=== PATIENT | male | born 1980 | race Caucasian/White ===

== ENCOUNTER 2017-04-03 14:52 | Emergency (ER) | payer OTHER, SELFPAY ==
[~2017-04-03] VITALS: Ht 185.4 cm; Wt 146.8 kg
[~2017-04-03 14:52] MED LIST: /CIPR75TA; FLAG500T
[2017-04-03 14:53] VITALS: BP 157/84
[2017-04-03] MEDS ORDERED: ROBA500T PO (16:16)
[2017-04-03] MEDS ORDERED: IBUP-1022 PO (16:16)
== END 2017-04-03 16:22 | disposition home or self-care (01) ==
LOC: M ED 14:52
DX: M54.12 Radiculopathy, cervical region (principal)

== ENCOUNTER 2019-02-08 16:28 | Emergency (ER) | payer OTHER, SELFPAY ==
[~2019-02-08] VITALS: Ht 185.4 cm; Wt 156.2 kg
[~2019-02-08 16:28] MED LIST changes: +IBUP-1022 PO; +ROBA500T PO
[2019-02-08] MEDS ORDERED: IPRATROPIUM 0.5MG/ALBUTEROL 2.5MG INH SOL UD 3ML (DUONEB)(J7620) NEB ONE (16:45)
[2019-02-08] MEDS ORDERED: ALBUTEROL SULFATE 2.5 MG/0.5 ML INH NEB SOLN INH ONE (16:45)
[2019-02-08] MEDS ORDERED: dexameTHASONE 20 MG/5 ML VIAL (J1100) IV ONE (17:00)
[2019-02-08 17:16] LABS: BASO # 0.1 10^3/uL (0.0-0.2); BASO % 0.5 % (0.0-1.0); EOS # 0.1 10^3/uL (0.0-0.50); HEMATOCRIT 48.1 % (42.0-52.0); HEMOGLOBIN 16.5 g/dl (13.5-17.5); LYMPH # 2.8 10^3/uL (1.5-4.5); LYMPH % 26.2 % (24.0-44.0); MEAN CORPUSCULAR HEMOGLOBIN 31.4 pg (27.0-33.0); MEAN CORPUSCULAR HGB CONC 34.3 g/dl (32.0-36.5); MEAN CORPUSCULAR VOLUME 91.6 fl (80.0-96.0); MONO # 0.9 10^3/uL (0.0-0.8); MONO % 8.7 % (0.0-5.0); NEUTROPHILS # 6.7 10^3/uL (1.8-7.7); NEUTROPHILS % 63.2 % (36.0-66.0); PLATELET COUNT, AUTOMATED 215 10^3/uL (150-450); RED BLOOD COUNT 5.25 10^6/uL (4.30-6.10); WHITE BLOOD COUNT 10.6 10^3/uL (4.0-10.0)
[2019-02-08 17:34] LABS: BLOOD UREA NITROGEN 9 MG/DL (7-18); CALCIUM LEVEL 9.4 MG/DL (8.5-10.1); CARBON DIOXIDE LEVEL 30 MEQ/L (21-32); CHLORIDE LEVEL 106 MEQ/L (98-107); CK-MB VALUE MASS 1.7 NG/ML (<3.6); CPK CREATINE PHOSPHOKINASE 134 U/L (39-308); CREATININE FOR GFR 1.18 MG/DL (0.70-1.30); GLOMERULAR FILTRATION RATE > 60.0 (>60); GLUCOSE, FASTING 91 MG/DL (70-100); MB/CK RELATIVE INDEX 1.27 (< OR =4); NT-PRO BNP 27 PG/ML (<125); POTASSIUM SERUM 4.2 MEQ/L (3.5-5.1); SODIUM LEVEL 139 MEQ/L (136-145); TROPONIN I < 0.02 NG/ML (< 0.10)
[2019-02-08] MEDS ORDERED: ISOVUE-370 76% 100ML VIAL (Q9967) As Ordered ONE (17:46)
--- NOTE | 2019-02-08 18:36 | REPVR ---
EXAM: CT Angiography Chest With Contrast EXAM DATE/TIME: 02/08/2019 5:53 PM CLINICAL HISTORY: 38 years old, male; Shortness of breath; Right-sided chest pain; Additional info: Chest pain (right), SOB TECHNIQUE: Imaging protocol: Axial computed tomographic angiography images of the chest with intravenous contrast using CT angiography protocol. Coronal and sagittal reformatted images were created and reviewed. 3D rendering: MIP reconstructed images were created and reviewed. Radiation optimization: All CT scans at this facility use at least one of these dose optimization techniques: automated exposure control; mA and/or kV adjustment per patient size (includes targeted exams where dose is matched to clinical indication); or iterative reconstruction. Contrast material: ISOVUE 370;Contrast volume: 75 ml;Contrast route: IV; COMPARISON: CR PORTABLE CHEST X-RAY 02/08/2019 4:50 PM FINDINGS: Pulmonary arteries: There are no pulmonary emboli. Aorta: There is no aortic dissection or aneurysm. Lungs: Pleural-based parenchymal opacity in the anterior segment of the right lower lobe measures 1.8 x 2.7 cm. Finding may represent a focus of airspace consolidation however a mass is not excluded. Followup suggested. There is bibasilar compressive atelectasis. Pleural space: Unremarkable. No pneumothorax. No pleural effusion. Heart: Unremarkable. No cardiomegaly. No pericardial effusion. Lymph nodes: Unremarkable. No enlarged lymph nodes. Bones/joints: Unremarkable. No acute fracture. Soft tissues: Unremarkable. Other findings: Suboptimal inspiratory effort. IMPRESSION: 1. Pleural-based parenchymal opacity in the anterior segment of the right lower lobe measures 1.8 x 2.7 cm. Finding may represent a focus of airspace consolidation however a mass is not excluded. Followup suggested after treatment in this patient with no reported history of malignancy. 2. There is no aortic dissection or aneurysm. 3. There are no pulmonary emboli. Electronically signed by: Macario Vasquez On 02/08/2019 18:36:13 PM
[2019-02-08] MEDS ORDERED: DOXYCYCLINE HYCLATE 100 MG TAB PO ONE (19:15)
[2019-02-08 19:45] VITALS: BP 134/76
[2019-02-08] MEDS ORDERED: VENTAER INH (19:48)
[2019-02-08] MEDS ORDERED: PRED20TA PO (19:48)
[2019-02-08] MEDS ORDERED: DOXY-350 PO (19:48)
--- NOTE | 2019-02-09 08:08 | ECGEPIP ---
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
--- NOTE | 2019-02-09 09:59 | REP ---
AP PORTABLE CHEST: 02/08/2019. Comparison: 08/29/2002. Clinical history: Chest pain. Findings: The lung quigley are well inflated. I do not see effusion, lateral pleural thickening, apical scarring or pneumothorax. No pneumomediastinum. No dense consolidation. Heart not enlarged. Aorta and airway intact. No widening of the mediastinum. Hilar contours normal. Bones grossly intact. Impression: 1. No acute cardiopulmonary change. Electronically Signed by Alden Boyd MD 02/09/2019 10:13 A
[2019-02-15] MEDS ORDERED: DOXY100T16 PO (17:50)
== END 2019-02-08 20:06 | disposition home or self-care (01) ==
LOC: M ED 16:28
DX: J18.9 Pneumonia, unspecified organism (principal); J45.909 Unspecified asthma, uncomplicated; F17.210 Nicotine dependence, cigarettes, uncomplicated
CPT/HCPCS: 71045; 71275; 80048; 82550; 82553; 83880; 85025; 85379; 93005; 93041; 94640; 94760; 96374; 99285; J1100; Q9967

== ENCOUNTER 2019-02-15 14:26 | Inpatient (IN) | payer OTHER ==
[~2019-02-15] VITALS: Ht 185.4 cm; Wt 163.4 kg
[~2019-02-15 14:26] MED LIST changes: +DOXY-350 PO; +PRED20TA PO; +VENTAER INH
[2019-02-15] MEDS ORDERED: IPRATROPIUM 0.5MG/ALBUTEROL 2.5MG INH SOL UD 3ML (DUONEB)(J7620) NEB ONE (15:00)
[2019-02-15] MEDS ORDERED: ALBUTEROL SULFATE 2.5 MG/0.5 ML INH NEB SOLN INH ONE (15:00)
[2019-02-15 15:11] LABS: BASO # 0.1 10^3/uL (0.0-0.2); BASO % 0.4 % (0.0-1.0); EOS # 0.6 10^3/uL (0.0-0.50); EOS % 3.6 % (0.0-3.0); HEMOGLOBIN 15.7 g/dl (13.5-17.5); LYMPH # 1.9 10^3/uL (1.5-4.5); LYMPH % 12.1 % (24.0-44.0); MEAN CORPUSCULAR HEMOGLOBIN 30.5 pg (27.0-33.0); MEAN CORPUSCULAR HGB CONC 33.4 g/dl (32.0-36.5); MEAN CORPUSCULAR VOLUME 91.3 fl (80.0-96.0); MONO # 1.5 10^3/uL (0.0-0.8); MONO % 9.7 % (0.0-5.0); NEUTROPHILS # 11.6 10^3/uL (1.8-7.7); NEUTROPHILS % 73.6 % (36.0-66.0); PLATELET COUNT, AUTOMATED 266 10^3/uL (150-450); RED BLOOD COUNT 5.15 10^6/uL (4.30-6.10); WHITE BLOOD COUNT 15.7 10^3/uL (4.0-10.0)
[2019-02-15 15:12] LABS: VENOUS BASE EXCESS 0.5 (-2.0-2.0); VENOUS HCO3 26.6 MEQ/L (23.0-27.0); VENOUS O2 SATURATION 77.8 % (60.0-80.0); VENOUS PARTIAL PRESSURE CO2 48.1 mmHg (38.0-50.0); VENOUS PARTIAL PRESSURE O2 40.9 mmHg (30.0-50.0); VENOUS PH 7.361 UNITS (7.330-7.430); VENOUS STANDARD HCO3 24.4 MEQ/L; VENOUS TOTAL CO2 28.1 MEQ/L (24.0-28.0)
[2019-02-15] MEDS ORDERED: cefTRIAXone SOD 2 GM in D5W MINI-BAG PLUS 50 ML IV ONE (15:15)
[2019-02-15] MEDS ORDERED: AZITHROMYCIN INJ 500 MG, VIAL MATE ADAPTER 1 EACH in D5W 250 ML IV ONE (15:45)
[2019-02-15 15:54] LABS: ALT/SGPT 16 U/L (12-78); BILIRUBIN,DIRECT 0.2 MG/DL (0.0-0.2); BILIRUBIN,TOTAL 0.6 MG/DL (0.2-1.0); BLOOD UREA NITROGEN 10 MG/DL (7-18); CALCIUM LEVEL 8.2 MG/DL (8.5-10.1); CARBON DIOXIDE LEVEL 27 MEQ/L (21-32); CHLORIDE LEVEL 104 MEQ/L (98-107); CK-MB VALUE MASS 2.3 NG/ML (<3.6); CPK CREATINE PHOSPHOKINASE 175 U/L (39-308); GLOMERULAR FILTRATION RATE > 60.0 (>60); GLUCOSE, FASTING 104 MG/DL (70-100); MB/CK RELATIVE INDEX 1.31 (< OR =4); NT-PRO BNP 35 PG/ML (<125); SODIUM LEVEL 138 MEQ/L (136-145); THYROXINE (T4) 9.2 UG/DL (4.5-12.0); TOTAL PROTEIN 6.6 GM/DL (6.4-8.2); TROPONIN I < 0.02 NG/ML (< 0.10)
--- NOTE | 2019-02-15 16:35 | REP ---
HISTORY: Cough and dyspnea. COMPARISON: 02/08/2019 The technique utilized in obtaining the radiograph has magnified the cardiac silhouette and accentuated the interstitial markings. Since the last examination a patchy opacity has developed in the right lower lobe. The cardiomediastinal silhouette is unchanged. The left lung is clear. The osseous structures are stable. IMPRESSION: New right lower lobe opacity. Atelectasis/pneumonia/effusion. Electronically Signed by Logan Gusman DO 02/15/2019 04:36 P
[2019-02-15] MEDS ORDERED: KETOROLAC 30 MG/ML VIAL (J1885) IV ONE (17:45)
[2019-02-15] MEDS ORDERED: VENTAER INH (17:48)
[2019-02-15] MEDS ORDERED: IBUP1TAB6 PO (17:50)
[2019-02-15] MEDS ORDERED: DOXY100T27 PO (17:50)
[2019-02-15] MEDS ORDERED: VANCOMYCIN HCL IV ONE (18:30)
[2019-02-15] MEDS ORDERED: FLUID PLACE HOLDER IV ONE (18:30)
[2019-02-15] MEDS ORDERED: FLUID PLACE HOLDER IV SCH (18:30)
[2019-02-15] MEDS ORDERED: VANCOMYCIN HCL IV SCH (18:30)
[2019-02-15] MEDS ORDERED: ISOVUE-370 76% 100ML VIAL (Q9967) As Ordered ONE (18:40)
--- NOTE | 2019-02-15 19:06 | HPEPDOC ---
General Date of Admission 02/15/19 Date of Service: Feb 15, 2019 Attending Physician: JACK ADLER DO Chief Complaint The patient is a 38-year-old male admitted with a reason for visit of Sob, Chest Pain. Source: Patient, Family History of Present Illness Patient is 38 years old male with past medical history morbid obesity and smoking abuse presented hospital with dyspnea, right-sided chest pain, cough and sputum production. Patient states that one week ago he developed cough,sputum, subjective fever and shortness of breath. He came to the hospital in the emergency room CT was done and it was negative for consolidation and pulmonary emboli. Patient was prescribed doxycycline, prednisone by mouth. Patient took 6 days of doxycycline and steroid without improvement. 2 days ago patient noticed increased cough and increased sputum production yellowish in color. Also he noticed increased shortness of breath and profound weakness. Today he came to emergency room and he was found to have new right lower lobe opacity on chest x- ray. Also he was found to have leukocytosis of 15. Oxygen saturation on room air showed 93%. Home Medications Scheduled Doxycycline Monohydrate (Doxycycline Monohydrate) 100 Mg Tablet, 100 MG PO BID, (Reported) Scheduled PRN Albuterol Sulfate (Ventolin Hfa) 18 Gm Hfa.aer.ad, 2 PUFF INH Q4-6HP PRN for wheezing, (Reported) Ibuprofen (Ibuprofen) 600 Mg Tablet, 600 MG PO Q6H PRN for PAIN, (Reported) Allergies Coded Allergies: No Known Allergies (Unverified , 02/08/19) Past Medical History Medical History Morbid obesity, active smoker Family History Significant Family History: No pertinent family hx Social History * Smoker: current smoker, greater than 1 pack/day, cigarettes Alcohol: Denies Drugs: marijuana Psychosocial History: No pertinent psych hx A-FIB/CHADSVASC A-FIB History Current/History of A-Fib/PAF?: No Current PO Anticoag Therapy: No Review of Systems Constitutional: Reports: Chills, Fever, Malaise, Weakness, Fatigue Eyes: Denies: Pain, Vision change ENT: Reports: Head Aches Skin: Denies: Rash, Lesions Pulmonary: Reports: Dyspnea, Cough, Pleuritic Chest Pain Cardiovascular: Denies: Chest Pain, Palpitations Gastrointestinal: Denies: Nausea, Vomiting, Abdominal Pain Genitourinary: Denies: Dysuria, Frequency, Incontinence Hematologic: Denies: Bruising, Bleeding Excessively Endocrine: Denies: Polydipsia, Polyphagia, Polyuria Musculoskeletal: Reports: Back Pain; Denies: Neck Pain Neurological: Denies: Weakness, Numbness Psych: Reports: Mood Normal Physical Examination General Exam: Positive: Alert, Cooperative, Mild Distress Eye Exam: Positive: PERRLA ENT Exam: Positive: Atraumatic, Mucous membr. moist/pink Neck Exam: Positive: Supple; Negative: JVD Chest Exam: Positive: Wheezing, Diminished Heart Exam: Positive: Tachycardic, Normal S1, Normal S2 Abdomen Exam: Positive: Normal bowel sounds, Soft Extremity Exam: Negative: Clubbing, Cyanosis Skin Exam: Negative: Nl turgor and temperature, Rash Neuro Exam: Positive: Normal Gait, Cranial Nerves 3-12 NL Psych Exam: Positive: Mental status NL Vital Signs Vital Signs Date Time Temp Pulse Resp B/P (MAP) Pulse Ox O2 Delivery O2 Flow Rate FiO2 02/15/19 17:01 102 169/86 (113) 94 Room Air 02/15/19 15:13 92 02/15/19 14:26 99.8 30 Laboratory Data Labs 24H Laboratory Tests 2 02/15/19 15:01: Immature Granulocyte % (Auto) 0.6, White Blood Count 15.7H, Red Blood Count 5.15, Hemoglobin 15.7, Hematocrit 47.0, Mean Corpuscular Volume 91.3, Mean Corpuscular Hemoglobin 30.5, Mean Corpuscular Hemoglobin Concent 33.4, Red Cell Distribution Width 13.3, Platelet Count 266, Neutrophils (%) (Auto) 73.6H, Lymphocytes (%) (Auto) 12.1L, Monocytes (%) (Auto) 9.7H, Eosinophils (%) (Auto) 3.6H, Basophils (%) (Auto) 0.4, Neutrophils # (Auto) 11.6H, Lymphocytes # (Auto) 1.9, Monocytes # (Auto) 1.5H, Eosinophils # (Auto) 0.6H, Basophils # (Auto) 0.1, Nucleated Red Blood Cells % (auto) 0.0, Blood Gas Bicarbonate Standard 24.4, Venous Blood pH 7.361, Venous Blood Partial Pressure CO2 48.1, Venous Blood Partial Pressure O2 40.9, Venous Blood Total Carbon Dioxide 28.1H, Venous Blood HCO3 26.6, Venous Blood Oxygen Saturation 77.8, Venous Blood Base Excess 0.5, Anion Gap 7L, Glomerular Filtration Rate > 60.0, Lactic Acid Level 1.5, Calcium Level 8.2L, Aspartate Amino Transf (AST/SGOT) 11, Alanine Aminotransferase (ALT/SGPT) 16, Alkaline Phosphatase 75, Total Bilirubin 0.6, Direct Bilirubin 0.2, Total Creatine Kinase 175, Creatine Kinase MB 2.3, Creatine Kinase MB Relative Index 1.31, Troponin I < 0.02, AG-Hhu-A-Type Natriuretic Peptide 35, Total Protein 6.6, Albumin 3.0L, Albumin/Globulin Ratio 0.83L, Thyroid Stimulating Hormone (TSH) 1.790, Thyroxine (T4) 9.2 CBC/BMP Laboratory Tests 02/15/19 15:01 Red Blood Count 5.15, Mean Corpuscular Volume 91.3, Mean Corpuscular Hemoglobin 30.5, Mean Corpuscular Hemoglobin Concent 33.4, Red Cell Distribution Width 13.3, Neutrophils (%) (Auto) 73.6 H, Lymphocytes (%) (Auto) 12.1 L, Monocytes (%) (Auto) 9.7 H, Eosinophils (%) (Auto) 3.6 H, Basophils (%) (Auto) 0.4, Neutrophils # (Auto) 11.6 H, Lymphocytes # (Auto) 1.9, Monocytes # (Auto) 1.5 H, Eosinophils # (Auto) 0.6 H, Basophils # (Auto) 0.1 Microbiology Microbiology 02/15/19 Blood Culture, Received Pending 02/15/19 Blood Culture, Received Pending 02/15/19 Gram Stain, Received Pending 02/15/19 Sputum Culture, Received Pending Assessment/Plan Patient is 38 years old male with past medical history morbid obesity and smokin g abuse presented hospital with dyspnea, right-sided chest pain, cough and sputum production. Patient was diagnosed with right sided pneumonia with new right lower lobe opacity. Problems (1) Sepsis Problem Text: Secondary to right-sided pneumonia Patient has significant dyspnea and leukocytosis Chest x-ray showed significant right lower lobe opacity, which is suspicious for consolidation Chest CT stat Monitor lactic acid Patient fail treatment with doxycycline and steroids Vancomycin IV, Zosyn IV MRSA screen Urine analysis for Legionella and Streptococcus Sputum culture ordered Solu-medrol IV every 8 hours Incentive spirometry Inhalers IV fluid (2) Pneumonia Status: Acute Problem Text: see treatment above Plan / VTE VTE Prophylaxis Ordered?: Yes JACK ADLER DO Feb 15, 2019 19:06
[2019-02-15] MEDS: NS 1,000 ML IV SCH (19:15)
[2019-02-15] MEDS: PIPERACILLIN/TAZOBACTAM SOD 4.5 GM in D5W MINI-BAG PLUS 100 ML IV SCH (19:27)
[2019-02-15] MEDS: methylPREDNISolone INJ 125 MG/2 ML VIAL (J2930) IV SCH (19:27)
--- NOTE | 2019-02-15 20:09 | PHACANCOPD ---
PHARMACY VANCOMYCIN DOSING Pt Demographics Demographics Patient Age:38 , Weight:154.550 , Gender: male Adjusted Body Weight Date: 02/15/19, Adjusted Body Weight: [109.76] Kg Events Past 24 Hours Events Past 24 Hours: NO: Dialysis, Diuretic Therapy, Change in CrCl, Fever, Elevation in WBC, Pending Diagnostics, Pending Procedures, Other Vancomycin Vancomycin indication: CAP Vancomycin Target Ranges: 15-20 mcg/ml Vancomycin Load Y/N: Yes Load Dose Date Time Vancomycin Load Dose: 2G Date:02/15/19 Time: 20:00 Vancomycin Dose Date: 02/15/19. Current Vancomycin Dose: [1G IV Q8H] Intermittent Dosing?: No Labs Labs Item Value Date Time White Blood Count 15.7 10^3/uL H 02/15/19 1501 Creatinine 0.90 MG/DL 02/15/19 1501 Micro Microbiology 02/15/19 Blood Culture, Received Pending 02/15/19 Blood Culture, Received Pending 02/15/19 Gram Stain, Received Pending 02/15/19 Sputum Culture, Received Pending Creatinine Clearance Date:02/15/19. Creatinine Clearance: [128ML/MIN]. Pending Labs VANCOMYCIN TROUGH 02/16/19 20:00 MRSA PCR Assessment and Plan Maintaining Current Dose?: Yes Reason for dose change: No Dose Change Pharmacist Note Pharmacist Note Date: 02/15/19. Pharmacist note: PT is a 38 year old male being treated for CAP goal trough 15-20mcg/ml. The pt has not been treated with Vancomycin here at [facility] in the past. To achieve goal a 2g loading dose will be started 02/15/19 @ 21:00. Maintenance therapy will consist of 1g IV every 8 hours. A trough is scheduled for @ 20:00. We will continue to monitor and adjust the dose as needed. MICKEY RODRÍGUEZ PHARMACY Feb 15, 2019 20:09
--- NOTE | 2019-02-15 20:22 | ECGEPIP ---
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
[2019-02-15] MEDS: HEPARIN SOD (PORCINE) 5000 UNITS/ML VIAL SC SCH (20:27)
[2019-02-15] MEDS: DOCUSATE SODIUM 100 MG CAP PO SCH (20:27)
[2019-02-15] MEDS: IPRATROPIUM 0.5MG/ALBUTEROL 2.5MG INH SOL UD 3ML (DUONEB)(J7620) INH SCH (20:33)
[2019-02-15] MEDS: VANCOMYCIN HCL 1,000 MG, VIAL MATE ADAPTER 1 EACH in D5W 250 ML IV SCH (20:35)
[2019-02-15] MEDS ORDERED: VANCOMYCIN HCL 1,000 MG, VIAL MATE ADAPTER 1 EACH in D5W 250 ML IV ONE ×2 (22:00→23:00)
[2019-02-15 22:24] VITALS: BP 134/69
[2019-02-16] VITALS (8 sets, daily range): BP systolic 132–148; BP diastolic 63–82
[2019-02-16] MEDS: IPRATROPIUM 0.5MG/ALBUTEROL 2.5MG INH SOL UD 3ML (DUONEB)(J7620) INH SCH ×6 (00:10→20:00)
[2019-02-16] MEDS: methylPREDNISolone INJ 125 MG/2 ML VIAL (J2930) IV SCH ×3 (02:19→18:30)
[2019-02-16] MEDS: PIPERACILLIN/TAZOBACTAM SOD 4.5 GM in D5W MINI-BAG PLUS 100 ML IV SCH ×4 (02:19→19:36)
[2019-02-16] MEDS: VANCOMYCIN HCL 1,000 MG, VIAL MATE ADAPTER 1 EACH in D5W 250 ML IV SCH ×3 (04:53→20:54)
[2019-02-16 05:10] LABS: HEMATOCRIT 44.3 % (42.0-52.0); HEMOGLOBIN 14.9 g/dl (13.5-17.5); MEAN CORPUSCULAR HEMOGLOBIN 30.7 pg (27.0-33.0); MEAN CORPUSCULAR HGB CONC 33.6 g/dl (32.0-36.5); MEAN CORPUSCULAR VOLUME 91.2 fl (80.0-96.0); PLATELET COUNT, AUTOMATED 245 10^3/uL (150-450); RED BLOOD COUNT 4.86 10^6/uL (4.30-6.10); WHITE BLOOD COUNT 17.1 10^3/uL (4.0-10.0)
[2019-02-16 05:29] LABS: BLOOD UREA NITROGEN 10 MG/DL (7-18); CALCIUM LEVEL 8.4 MG/DL (8.5-10.1); CARBON DIOXIDE LEVEL 28 MEQ/L (21-32); CHLORIDE LEVEL 105 MEQ/L (98-107); CREATININE FOR GFR 1.02 MG/DL (0.70-1.30); GLOMERULAR FILTRATION RATE > 60.0 (>60); GLUCOSE, FASTING 192 MG/DL (70-100); POTASSIUM SERUM 3.7 MEQ/L (3.5-5.1); SODIUM LEVEL 137 MEQ/L (136-145)
[2019-02-16] MEDS: NS 1,000 ML IV SCH ×4 (07:43→19:36)
[2019-02-16 08:09] LABS: LDH LACTATE DEHYDROGENASE 192 U/L (87-241)
[2019-02-16] MEDS: HEPARIN SOD (PORCINE) 5000 UNITS/ML VIAL SC SCH ×2 (09:00→20:34)
[2019-02-16] MEDS: DOCUSATE SODIUM 100 MG CAP PO SCH ×2 (09:00→20:34)
--- NOTE | 2019-02-16 14:10 | REP ---
AP PORTABLE CHEST: 02/16/2019 at 06:59 AM. Comparison: 02/15/2019, 02/08/2019, CT chest with 16 19. Clinical history: Right pleural effusion. Findings: Lordotic portable semi-erect chest exaggerates heart size. This also makes the effusion look larger although I suspect it is not much changed since last evening. Left lung was clear. Heart size not grossly enlarged. Some subsegmental atelectasis or infiltrate with the effusion on that right side. Impression: 1. Right sided effusion, not much changed from last evening. Left lung clear. No edema. 2. Atelectasis or infiltrate concurrent with that effusion in the left mid lung zone. Electronically Signed by Alden Boyd MD 02/16/2019 09:57 P
--- NOTE | 2019-02-16 15:11 | IPNPDOC ---
Text Note Date of Service The patient was seen on 02/16/19. NOTE Subjective: No any acute events overnight. Patient complains of cough with ye llowish sputum and shortness of breath. However he states that shortness of breath improved since yesterday. Objective Gen morbidly obese male HEENT PERRLA, EOMI, no JVD CV S1 and S2 regular Lungs Diminished lung sounds bilaterally, mild crepitus over the right lower lung Mild wheezes bilaterally Extremitas no swelling no cyanosis Assessment and plan Patient is 38 years old male with past medical history morbid obesity and smoking abuse presented hospital with dyspnea, right-sided chest pain, cough and sputum production. Patient fail treatment with doxycycline and steroids. Patient was found to have sepsis secondary to right lobe pneumonia with right pleural effusion. Sepsis Secondary to right-sided pneumonia Patient has significant dyspnea and leukocytosis. Lactic acid wnl Chest x-ray showed significant right lower lobe opacity, which is suspicious for consolidation Chest CT stat showed right pleural effusion, there is suspicion for empyema Pleuracentesis ordered Vancomycin IV, Zosyn IV day 1 MRSA screen pending Urine analysis for Legionella and Streptococcus pending Sputum culture pending Solu-medrol IV every 8 hours Incentive spirometry Inhalers IV fluid CAP see above VS,Fishbone, I+O VS, Fishbone, I+O Laboratory Tests 02/16/19 04:56 Red Blood Count 4.86, Mean Corpuscular Volume 91.2, Mean Corpuscular Hemoglobin 30.7, Mean Corpuscular Hemoglobin Concent 33.6, Red Cell Distribution Width 13 .1, Calcium Level 8.4 L Vital Signs Date Time Temp Pulse Resp B/P (MAP) Pulse Ox O2 Delivery O2 Flow Rate FiO2 02/16/19 12:00 98.0 87 22 132/70 (90) 90 2.0 02/15/19 19:30 Room Air 02/15/19 15:13 92 I&O- Last 24 Hours up to 6 AM 02/16/19 05:59 Intake Total 2195 ml Output Total 2000 ml Balance 195 ml JACK ADLER DO Feb 16, 2019 15:11
--- NOTE | 2019-02-16 18:27 | REP ---
PA LATERAL CHEST: 02/16/2019 05:50 P.M. Comparison: AP portable chest this AM. Clinical history. Right pleural effusion. Findings: Two views of the chest and a low level of inspiration show some pleural effusion remaining and compressive atelectasis or infiltrates right base. The left lung appeared clear. There is no pneumothorax. There is no other interval change. Impression: 1. Status post right thoracentesis (removal of foreign 35 ml serosanguineous fluid. Effusion and basilar atelectasis, infiltrate remain but no pneumothorax. Electronically Signed by Alden Boyd MD 02/16/2019 06:19 P
--- NOTE | 2019-02-16 20:28 | PHACANCOPD ---
PHARMACY VANCOMYCIN DOSING Pt Demographics Demographics Patient Age:38 , Weight:152.100 , Gender: male Adjusted Body Weight Date: 02/15/19, Adjusted Body Weight: [109.76] Kg Events Past 24 Hours Events Past 24 Hours: NO: Dialysis, Diuretic Therapy, Change in CrCl, Fever, Elevation in WBC, Pending Diagnostics, Pending Procedures, Other Vancomycin Vancomycin indication: CAP Vancomycin Target Ranges: 15-20 mcg/ml Vancomycin Load Y/N: Yes Load Dose Date Time Vancomycin Load Dose: 2G Date:02/15/19 Time: 20:00 Vancomycin Dose Date: 02/16/19. Current Vancomycin Dose: [1G IV Q6H] Intermittent Dosing?: No Labs Labs Item Value Date Time Creatinine 1.02 MG/DL 02/16/19455 Glomerular Filtration Rate > 60.0 02/16/19455 Vancomycin Level Trough 7.7 UG/ML L 02/16/19 194 White Blood Count 17.1 10^3/uL H 02/16/19 045 Vital Signs Label Value Date Time Patient Temperature 99.5 degrees F 02/16/19 1800 Temperature Source Temporal 02/16/19 1800 Micro Microbiology 02/15/19 Blood Culture - Preliminary, Resulted No growth after 24 hours . All specim... 02/15/19 Blood Culture - Preliminary, Resulted No growth after 24 hours . All specim... 02/15/19 MRSA Screen, Received Pending 02/15/19 Gram Stain - Final, Resulted 02/15/19 Sputum Culture, Resulted Pending Creatinine Clearance Date:02/15/19. Creatinine Clearance: [128ML/MIN]. Pending Labs VANCOMYCIN TROUGH 02/17/19 08:00 MRSA PCR Assessment and Plan Maintaining Current Dose?: No Reason for dose change: Trough too low Pharmacist Note Pharmacist Note Date: 02/16/19. Pharmacist note:Trough of 7.7 is below target range. Dose increased to 1000mg q6h with a 500mg extra dose @0000. Will continue to monitor and adjust the dose as needed. JANICE RUCKER PHARMACY Feb 16, 2019 20:28
[2019-02-17] VITALS: BP 119/70
[2019-02-17] MEDS ORDERED: VANCOMYCIN HCL 500 MG in D5W MINI-BAG PLUS 100 ML IV ONE ×2
[2019-02-17] MEDS: FAMOTIDINE 20 MG TAB PO SCH ×2 (00:08→20:09)
[2019-02-17] MEDS: PIPERACILLIN/TAZOBACTAM SOD 4.5 GM in D5W MINI-BAG PLUS 100 ML IV SCH ×4 (01:52→20:09)
[2019-02-17] MEDS: VANCOMYCIN HCL 1,000 MG, VIAL MATE ADAPTER 1 EACH in D5W 250 ML IV SCH ×2 (03:06→09:38)
[2019-02-17] MEDS: methylPREDNISolone INJ 125 MG/2 ML VIAL (J2930) IV SCH (03:06)
[2019-02-17 04:00] VITALS: BP 143/69
[2019-02-17] MEDS: IPRATROPIUM 0.5MG/ALBUTEROL 2.5MG INH SOL UD 3ML (DUONEB)(J7620) INH SCH ×6 (04:00→19:26)
[2019-02-17 05:25] LABS: HEMATOCRIT 40.9 % (42.0-52.0); HEMOGLOBIN 13.7 g/dl (13.5-17.5); MEAN CORPUSCULAR HEMOGLOBIN 30.1 pg (27.0-33.0); MEAN CORPUSCULAR HGB CONC 33.5 g/dl (32.0-36.5); MEAN CORPUSCULAR VOLUME 89.9 fl (80.0-96.0); PLATELET COUNT, AUTOMATED 263 10^3/uL (150-450); RED BLOOD COUNT 4.55 10^6/uL (4.30-6.10); WHITE BLOOD COUNT 25.1 10^3/uL (4.0-10.0)
[2019-02-17 05:48] LABS: BLOOD UREA NITROGEN 15 MG/DL (7-18); CALCIUM LEVEL 7.9 MG/DL (8.5-10.1); CARBON DIOXIDE LEVEL 23 MEQ/L (21-32); CHLORIDE LEVEL 110 MEQ/L (98-107); CREATININE FOR GFR 0.91 MG/DL (0.70-1.30); GLOMERULAR FILTRATION RATE > 60.0 (>60); GLUCOSE, FASTING 170 MG/DL (70-100); POTASSIUM SERUM 3.7 MEQ/L (3.5-5.1); SODIUM LEVEL 140 MEQ/L (136-145)
[2019-02-17 08:00] VITALS: BP 124/69
[2019-02-17] MEDS: DOCUSATE SODIUM 100 MG CAP PO SCH ×2 (09:00→19:56)
--- NOTE | 2019-02-17 09:16 | REP ---
ULTRASOUND-GUIDED RIGHT THORACENTESIS: 02/16/2019. Clinical history: Right pleural effusion, dyspnea. Request for diagnostic ultrasound guided thoracentesis. Technique: Procedure in potential diagnostic benefits along with the potential therapeutic benefits and risks including infection, pain, bleeding, pneumothorax or organ damage. Possibility of a media chest tube placed in the event of asymptomatic pneumothorax. He understands and consent was obtained. Formal time-out procedures were followed. The patient upright and his arms and upper body. Resting on the table top, the right chest was scanned and the skin marked over the largest pocket of fluid in the base of the right chest. Distance was measured from skin the pleura and pleura to lung. Standard thoracentesis needle was used and trocar technique. Chloraprep scrub, 5 ml 1% lidocaine given with 25 gauge needle and a small skin ramo was utilized. The catheter passed readily into the chest and the needle removed. The catheter threaded over it. There was easy drainage of serosanguineous fluid, a total form of 35 ml. The fluid was not turbid. There was no foul odor. Therefore per my discussion with the requesting physician, no catheter was placed into the collection for further drainage. When this area stopped draining the needle was removed, the dressing applied over the needle site with folded 4 x 4 and Tegaderm and the patient sent to get a post thoracentesis chest x-ray. He had no immediate problems. Impression: 1. Status post ultrasound-guided right thoracentesis with 435 ml of serosanguineous fluid drained without difficulty or any immediate complication. He tolerated all of this well. After the post procedure chest x-ray he was returned to the [facility] for 2 hours of vital sign monitoring. Initial vitals here were the same as upon his arrival in the department. Electronically Signed by Alden Boyd MD 02/17/2019 08:05 P
[2019-02-17] MEDS: HEPARIN SOD (PORCINE) 5000 UNITS/ML VIAL SC SCH ×2 (09:38→20:10)
[2019-02-17] MEDS: NS 1,000 ML IV SCH (11:15)
--- NOTE | 2019-02-17 11:27 | IPNPDOC ---
Text Note Date of Service The patient was seen on 02/17/19. NOTE Subjective: No any acute events overnight. Thoracocentesis was done yesterday, patient tolerates procedure well. Patient states that shortness of breath significantly improved, yellowish sputum became whitish Objective Gen morbidly obese male HEENT PERRLA, EOMI, no JVD CV S1 and S2 regular Lungs Diminished lung sounds bilaterally, mild expiratory wheezes Extremitas no swelling no cyanosis Assessment and plan Patient is 38 years old male with past medical history morbid obesity and smoking abuse presented hospital with dyspnea, right-sided chest pain, cough and sputum production. Patient fail treatment with doxycycline and steroids. Patient was found to have sepsis secondary to right lobe pneumonia with right pleural effusion. Chest x-ray showed significant right lower lobe opacity, which is suspicious for consolidation. Chest CT stat showed right pleural effusion Thoracocentesis was done on 02/17/19 435 ml of serosanguineous fluid drained. Patient receives treatment with IV vancomycin and Zosyn IV. There is some positive dynamics in his symptoms. Sepsis Secondary to right-sided pneumonia Improved Increased number of leukocytes could attributed to IV steroids. IV steroids stopped. By mouth prednisone 40 mg Chest x-ray showed significant right lower lobe opacity, which is suspicious for consolidation Chest CT stat showed right pleural effusion Pleuracentesis was done yesterday, pleuritic fluid analysis pending Pro-calcitonin pending Vancomycin IV, Zosyn IV day 2 MRSA screen pending Urine analysis for Legionella and Streptococcus pending Sputum culture pending Incentive spirometry Inhalers IV fluid CAP see above VS,Fishbone, I+O VS, Fishbone, I+O Laboratory Tests 02/17/19 05:13 Red Blood Count 4.55, Mean Corpuscular Volume 89.9, Mean Corpuscular Hemoglobin 30.1, Mean Corpuscular Hemoglobin Concent 33.5, Red Cell Distribution Width 13.2, Calcium Level 7.9 L Vital Signs Date Time Temp Pulse Resp B/P (MAP) Pulse Ox O2 Delivery O2 Flow Rate FiO2 02/17/19 08:00 98.7 87 18 124/69 (87) 92 3.0 02/15/19 19:30 Room Air 02/15/19 15:13 92 I&O- Last 24 Hours up to 6 AM 02/17/19 06:00 Intake Total 5585 ml Output Total 2900 ml Balance 2685 ml JACK ADLER DO Feb 17, 2019 11:27
[2019-02-17 12:00] VITALS: BP 134/68
[2019-02-17 20:00] VITALS: BP 117/67
[2019-02-17 22:00] VITALS: BP 156/78
[2019-02-18] MEDS: PIPERACILLIN/TAZOBACTAM SOD 4.5 GM in D5W MINI-BAG PLUS 100 ML IV SCH ×4 (02:47→23:45)
[2019-02-18] MEDS: IPRATROPIUM 0.5MG/ALBUTEROL 2.5MG INH SOL UD 3ML (DUONEB)(J7620) INH SCH ×7 (04:00→20:08)
[2019-02-18] MEDS: ACETAMINOPHEN TAB 650MG DOSE (2X325MG) PO PRN ×2 (05:29→15:00)
[2019-02-18 05:57] LABS: HEMATOCRIT 44.4 % (42.0-52.0); HEMOGLOBIN 14.9 g/dl (13.5-17.5); MEAN CORPUSCULAR HEMOGLOBIN 30.9 pg (27.0-33.0); MEAN CORPUSCULAR HGB CONC 33.6 g/dl (32.0-36.5); MEAN CORPUSCULAR VOLUME 92.1 fl (80.0-96.0); PLATELET COUNT, AUTOMATED 318 10^3/uL (150-450); RED BLOOD COUNT 4.82 10^6/uL (4.30-6.10); WHITE BLOOD COUNT 17.8 10^3/uL (4.0-10.0)
[2019-02-18 06:00] VITALS: BP 152/76
[2019-02-18 06:10] LABS: BLOOD UREA NITROGEN 13 MG/DL (7-18); CALCIUM LEVEL 8.1 MG/DL (8.5-10.1); CARBON DIOXIDE LEVEL 26 MEQ/L (21-32); CHLORIDE LEVEL 111 MEQ/L (98-107); CREATININE FOR GFR 0.92 MG/DL (0.70-1.30); GLOMERULAR FILTRATION RATE > 60.0 (>60); GLUCOSE, FASTING 99 MG/DL (70-100); MAGNESIUM LEVEL 2.4 MG/DL (1.8-2.4); POTASSIUM SERUM 3.9 MEQ/L (3.5-5.1); SODIUM LEVEL 142 MEQ/L (136-145)
[2019-02-18] MEDS ORDERED: IBUPROFEN 600 MG TAB PO ONE (06:15)
[2019-02-18] MEDS: DOCUSATE SODIUM 100 MG CAP PO SCH ×2 (09:00→21:00)
[2019-02-18] MEDS ORDERED: predniSONE 20 MG TAB PO SCH (09:00)
--- NOTE | 2019-02-18 09:30 | REPVR ---
EXAM: CT Chest With Contrast EXAM DATE/TIME: 02/15/2019 6:25 PM CLINICAL HISTORY: 38 years old, male; Condition or disease; Lung condition and disease; Pneumonia; Additional info: Right pleural consolidation TECHNIQUE: Imaging protocol: Axial computed tomography images of the chest with intravenous contrast. Coronal and sagittal reformatted images were created and reviewed. 3D rendering: MIP reconstructed images were created and reviewed. Radiation optimization: All CT scans at this facility use at least one of these dose optimization techniques: automated exposure control; mA and/or kV adjustment per patient size (includes targeted exams where dose is matched to clinical indication); or iterative reconstruction. Contrast material: ISOVUE 370;Contrast volume: 75 ml;Contrast route: IV; COMPARISON: CT ANGIO CHEST 02/08/2019 5:51 PM FINDINGS: Lungs: The lungs demonstrate respiratory motion and hypoventilatory change with low lung volumes. There is also volume loss within the right lung with elevation of the right hemidiaphragm. There is groundglass airspace opacity within the posterior right upper lobe as well as consolidation within the right middle lobe and right lower lobe, significantly increased when compared to the prior examination, and likely a combination of atelectasis and pneumonia. Mild left basilar atelectasis. Pleural space: There has been interval development of a moderate size right pleural effusion which extends along the posterior pleural margin and subpulmonic. There is a small component of this pleural effusion anterolaterally at the right base. No significant pleural effusion on the left. No pneumothorax. Heart: Cardiac size is normal. No pericardial effusion. Aorta: Unremarkable. No aortic aneurysm. Lymph nodes: Few small mediastinal lymph nodes. No significant adenopathy. Bones/joints: Degenerative change within the thoracic spine. No acute fracture. Soft tissues: Unremarkable. IMPRESSION: 1. Airspace opacity within the posterior right upper lobe as well as consolidation within the right middle lobe and right lower lobe, significantly increased when compared to the prior examination, and likely a combination of atelectasis and pneumonia. This is superimposed upon respiratory motion and hypoventilatory change. 2. Interval development of a moderate right parapneumonic effusion. Electronically signed by: Jamie Ayala On 02/18/2019 09:30:09 AM
[2019-02-18] MEDS: HEPARIN SOD (PORCINE) 5000 UNITS/ML VIAL SC SCH ×2 (10:11→20:58)
[2019-02-18] MEDS ORDERED: ALBUTEROL SULFATE 2.5 MG/0.5 ML INH NEB SOLN NEB PRN (13:00)
[2019-02-18 13:53] LABS: ABG BASE EXCESS 0.4 (-2.0-2.0); ABG HCO3 23.9 MEQ/L (22.0-26.0); ABG O2 SATURATION 95.1 % (95.0-99.0); ABG PARTIAL PRESSURE CO2 35.6 mmHg (35.0-45.0); ABG PARTIAL PRESSURE O2 71.8 mmHg (75.0-100.0); ABG STANDARD HCO3 24.7 MEQ/L (22.0-26.0); ABG pH (ARTERIAL) 7.445 UNITS (7.350-7.450)
[2019-02-18] MEDS ORDERED: ISOVUE-370 76% 100ML VIAL (Q9967) As Ordered ONE (14:06)
[2019-02-18 14:07] LABS: BODY FLUID CULTURE Not Indicated (.); LEGIONELLA ANTIGEN URINE Negative (Negative); ORGANISM ID Not indicated. (.); SPECIMEN SOURCE Urine (.); URINE STREP PNEUMONIAE ANTIGEN Negative (Negative)
[2019-02-18 14:25] VITALS: BP 125/64
[2019-02-18] MEDS ORDERED: SLF 3 ML SYR IV PRN (15:45)
[2019-02-18 16:00] VITALS: BP 109/56
[2019-02-18] MEDS: methylPREDNISolone INJ 125 MG/2 ML VIAL (J2930) IV SCH (17:46)
[2019-02-18] MEDS ORDERED: KETOROLAC TROMETHAMINE 10 MG TAB PO PRN (19:30)
[2019-02-18 20:00] VITALS: BP 141/75
[2019-02-18] MEDS: FAMOTIDINE 20 MG TAB PO SCH (20:56)
[2019-02-18] MEDS: SLF 3 ML SYR IV SCH (21:00)
--- NOTE | 2019-02-18 21:47 | IPNPDOC ---
Text Note Date of Service The patient was seen on 02/18/19. NOTE Subjective: Patient developed to the acute hypoxic respiratory failure, required 5 L of oxygen. Patient complains of increased shortness of breath today Patient did have tachycardia. Objective Gen morbidly obese male HEENT PERRLA, EOMI, no JVD CV S1 and S2 regular Lungs Diminished lung sounds bilaterally, mild expiratory wheezes Extremitas no swelling no cyanosis Assessment and plan Patient is 38 years old male with past medical history morbid obesity and smoking abuse presented hospital with dyspnea, right-sided chest pain, cough and sputum production. Patient fail treatment with doxycycline and steroids. Patient was found to have sepsis secondary to right lobe pneumonia with right pleural effusion. Chest x-ray showed significant right lower lobe opacity, which is suspicious for consolidation. Chest CT stat showed right pleural effusion Thoracocentesis was done on 02/17/19 435 ml of serosanguineous fluid drained. Patient receives treatment with IV vancomycin and Zosyn IV. There is some positive dynamics in his symptoms. Sepsis Secondary to right-sided pneumonia. Chest CT stat showed right pleural effusion Pleuracentesis was done, pleuritic fluid analysis pending Patient has increased shortness of breath today IV steroids re- started Pro-calcitonin pending Zosyn IV day 3 MRSA negative Urine analysis Streptococcus negative Incentive spirometry Inhalers IV fluid Acute hypoxemic respiratory failure There is concern for PE CTA pending VS,Paz, I+O VS, Paz, I+O Laboratory Tests 02/18/19 05:34 Red Blood Count 4.82, Mean Corpuscular Volume 92.1, Mean Corpuscular Hemoglobin 30.9, Mean Corpuscular Hemoglobin Concent 33.6, Red Cell Distribution Width 13.6, Calcium Level 8.1 L Vital Signs Date Time Temp Pulse Resp B/P (MAP) Pulse Ox O2 Delivery O2 Flow Rate FiO2 02/18/19 20:00 96.9 102 20 141/75 (97) 94 3.0 02/15/19 19:30 Room Air 02/15/19 15:13 92 I&O- Last 24 Hours up to 6 AM 02/18/19 06:00 Intake Total 1630 ml Output Total 600 ml Balance 1030 ml JACK ADLER DO Feb 18, 2019 21:47
[2019-02-18 23:59] VITALS: BP 126/62
[2019-02-19] VITALS (20 sets, daily range): BP systolic 104–150; BP diastolic 54–79
[2019-02-19] MEDS: methylPREDNISolone INJ 125 MG/2 ML VIAL (J2930) IV SCH ×2 (02:15→10:24)
[2019-02-19] MEDS: IPRATROPIUM 0.5MG/ALBUTEROL 2.5MG INH SOL UD 3ML (DUONEB)(J7620) INH SCH ×7 (02:47→23:27)
[2019-02-19 04:36] LABS: BASO % 0.1 % (0.0-1.0); HEMATOCRIT 42.1 % (42.0-52.0); HEMOGLOBIN 14.2 g/dl (13.5-17.5); LYMPH # 1.2 10^3/uL (1.5-4.5); LYMPH % 5.2 % (24.0-44.0); MEAN CORPUSCULAR HEMOGLOBIN 30.7 pg (27.0-33.0); MEAN CORPUSCULAR HGB CONC 33.7 g/dl (32.0-36.5); MEAN CORPUSCULAR VOLUME 90.9 fl (80.0-96.0); MONO # 1.9 10^3/uL (0.0-0.8); MONO % 8.3 % (0.0-5.0); NEUTROPHILS # 19.2 10^3/uL (1.8-7.7); NEUTROPHILS % 85.3 % (36.0-66.0); PLATELET COUNT, AUTOMATED 256 10^3/uL (150-450); RED BLOOD COUNT 4.63 10^6/uL (4.30-6.10); WHITE BLOOD COUNT 22.6 10^3/uL (4.0-10.0)
[2019-02-19] MEDS: PIPERACILLIN/TAZOBACTAM SOD 4.5 GM in D5W MINI-BAG PLUS 100 ML IV SCH ×3 (04:53→18:17)
[2019-02-19 04:56] LABS: BLOOD UREA NITROGEN 12 MG/DL (7-18); CALCIUM LEVEL 8.3 MG/DL (8.5-10.1); CARBON DIOXIDE LEVEL 26 MEQ/L (21-32); CHLORIDE LEVEL 108 MEQ/L (98-107); CREATININE FOR GFR 0.82 MG/DL (0.70-1.30); GLOMERULAR FILTRATION RATE > 60.0 (>60); GLUCOSE, FASTING 141 MG/DL (70-100); MAGNESIUM LEVEL 2.8 MG/DL (1.8-2.4); SODIUM LEVEL 138 MEQ/L (136-145)
[2019-02-19] MEDS: SLF 3 ML SYR IV SCH ×3 (06:22→21:06)
[2019-02-19] MEDS: DOCUSATE SODIUM 100 MG CAP PO SCH ×2 (08:32→21:00)
[2019-02-19] MEDS: HEPARIN SOD (PORCINE) 5000 UNITS/ML VIAL SC SCH ×2 (08:32→21:06)
--- NOTE | 2019-02-19 08:57 | REP ---
REASON: Dyspnea. COMPARISON: Multiple, 02/08/2019 and 02/15/2019. CONTRAST: 100 mL Isovue 370. There is less than optimal visualization of the pulmonary arterial vasculature. No gross focal filling defects are evident. Small third and even second order PE could be obscured. Markedly limited evaluation of the thoracic aorta shows no abnormality. There is a right pleural effusion at least part of which is loculated. It appears to have increased slightly from the prior exam. The imaged upper abdomen and imaged osseous structures are unchanged. Evaluation of the lung quigley again shows scattered asymmetric opacities significantly obscured by respiratory motion artifact as on the prior exam. The lung quigley have not changed significantly in their appearance. IMPRESSION: There has been no significant change in the appearance of the lung quigley when compared to the latest prior of 02/15/2019. Although there is no gross evidence of a pulmonary embolus due to limitations of the exam a pulmonary embolus cannot be ruled out. There is a right pleural effusion a portion of which is located and there are asymmetric lung bases opacities right greater than left at least in part representing subsegmental atelectasis. Certainly, pneumonia cannot be ruled out. Electronically Signed by Logan Gusman DO 02/19/2019 11:26 A
--- NOTE | 2019-02-19 11:57 | CR ---
DATE OF CONSULTATION: 02/19/2019 REQUESTING PHYSICIAN: Dr. Phillips REASON FOR CONSULTATION: Worsening shortness of breath. HISTORY OF PRESENT ILLNESS: Mr. Ortiz is a 38-year-old male with morbid obesity and history of smoking presenting for a week of worsening shortness of breath with dark green sputum production that has worsened since his ER visit on 02/08/2019 where he was discharged from the ER with doxycycline and by mouth steroids. He continued to experience shortness of breath and right sided chest wall pain with inspiration leading him to the ER, noted to be satting in the low 90s with low grade temperature. Imaging thus far has been negative for pulmonary embolism (PE), but he was found to have a loculated pleural effusion on the right suggestive of empyema, continuing to be on supplemental oxygen and rising white count despite being on ceftriaxone, azithromycin, vancomycin, Zosyn and Levaquin thus far during this admission. At time of exam, he continues to complain of shortness of breath, even at rest, and right sided chest wall pain. He has no other complaints. No fever, chills, nausea, vomiting, abd pain, paresthesia, rashes. PAST MEDICAL HISTORY: Morbid obesity with BMI of 46. Tobacco use Marijuana use ALLERGIES: None. FAMILY HISTORY: No pulmonary disease. CURRENT INPATIENT MEDICATIONS: - Tylenol - DuoNebs - heparin - Colace - Pepcid - Proventil - Zosyn - Solu-Medrol 60 mg every 8 hours IV - Toradol - Mucinex - Levaquin HOME MEDICATIONS: - Ventolin - doxy - ibuprofen SOCIAL: smoking 1 ppd currently. Previously smoked 2ppd for almost 15 years. Denies alcohol and illicit substances. 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 No recent travel, TB exposure, or sick contacts. Denies prior lung disease or family history of lung illnesses. SURGICAL: tonsillectomy & adenoidectomy REVIEW OF SYSTEMS: 12 points ROS negative, as per HPI. PHYSICAL EXAMINATION: VITALS: Temperature 98.8, pulse 83 and regular, respirations 18, blood pressure 124/60, MAP of 81. Pulse oximetry 94% on 3 liters nasal cannula. GENERAL: Resting comfortably in bed in no acute distress. Alert and oriented times three. Fully conversant. Able to speak in full sentences. HEENT: Normocephalic, atraumatic. MMM, EOMI, anicteric sclera, poor dentition with missing teeth NECK: Supple without tenderness CARDIAC: Regular rate and rhythm, normal S1 and S2. No appreciable murmurs. LUNGS: Diminished breath sounds throughout. Dullness to percussion present on the right lower hemithorax posteriorly. No appreciable rales or wheezing. Mild accessory muscle use. ABDOMEN: Obese, soft, nontender. EXTREMITIES: No edema or calf tenderness. 2+ radial pulses. LABS: WBC 22.6, hemoglobin and hematocrit 14/42, platelets 256. Sodium 138, potassium 4, chloride 108, carbon dioxide 26, BUN/creatinine 12/0.82. ABG from yesterday normal pH, pO2 and bicarb, 7.45, 35.6 and 23.9. Serology for strep pneumonia, mycoplasma, legionella pending. Methicillin-resistant Staphylococcus aureus (MRSA) screen negative. Blood culture is negative at 72 hours. Sputum culture negative. Cytology of pleural fluid and cell block from 02/18 negative. Imaging all reviewed. Agree with right pleural effusion that appears to be loculated. Increased haziness bilaterally. ASSESSMENT/PLAN: Acute hypoxemic respiratory failure secondary to community acquired pneumonia in the setting of empyema. Patient underwent thoracentesis on the , however there were no pleural studies sent. He is clinically doing worse since he was drained with notable loculated right pleural effusion. Given the concern for empyema, we have consulted Dr. Gomez for a chest tube versus pigtail catheter. This was discussed with the primary team. Continue broad spectrum antibiotics in the meanwhile. The patient was counseled on smoking cessation which is worsening his baseline breathing. At this point procalcitonin in also pending, however given his clinical picture he most certainly appears to have a pneumonia. Titrate down oxygen as tolerated. Maintain sats above 90. Thank you for the consult. We will be happy to follow along. My faculty preceptor for this patient encounter was physically present during the encounter and was fully available. All aspects of the patient interview, examination, medical decision making process, and medical care plan development were reviewed and approved by the faculty preceptor. The faculty preceptor is aware and concurs with the plan as stated in the body of this note and will attest to such by his/her co-signature. ANNIKA
[2019-02-19] MEDS ORDERED: MIDAZOLAM INJ 2 MG/2 ML VIAL (J2250) As Ordered ONE ×2 (12:12→12:13)
[2019-02-19] MEDS ORDERED: flumazeniL 0.5 MG/5 ML VIAL As Ordered ONE (12:12)
[2019-02-19] MEDS ORDERED: LIDOCAINE 1% MDV 20ML VIAL As Ordered ONE (12:13)
[2019-02-19] MEDS ORDERED: KCL 20MEQ IN D5/NS 1000ML 1,000 ML IV SCH (13:37)
[2019-02-19] MEDS ORDERED: ONDANSETRON 4MG/2ML VIAL (J2405) IV PRN (13:45)
[2019-02-19] MEDS ORDERED: NORCO, ANEXSIA 5/325MG TABLET (HYDROcodone/ACETAMINOPHEN) PO PRN (13:45)
[2019-02-19] MEDS ORDERED: BISACODYL 10 MG SUPP PR PRN (13:45)
[2019-02-19] MEDS ORDERED: LEVALBUTEROL 1.25 MG/0.5 ML CONCENTRATE NEB NEB PRN (13:45)
[2019-02-19] MEDS ORDERED: LEVALBUTEROL 1.25 MG/0.5 ML CONCENTRATE NEB NEB SCH (14:00)
[2019-02-19 14:01] LABS: LDH LACTATE DEHYDROGENASE 153 U/L (87-241)
[2019-02-19] MEDS: guaiFENesin ER 600 MG TAB PO SCH ×2 (14:14→21:05)
[2019-02-19] MEDS: LevoFLOXacin IV 500 MG in IV 1 EA IV SCH (14:14)
[2019-02-19] MEDS: KETOROLAC 30 MG/ML VIAL (J1885) IV SCH ×2 (14:30→21:07)
[2019-02-19 14:32] LABS: APPEARANCE, BODY FLUID HAZY (CLEAR); PLEURAL FL COLOR AMBER (COLORLESS); SOURCE, BODY FLUID PLEURAL
[2019-02-19] MEDS: PANTOPRAZOLE 40MG TAB (PROTONIX) PO SCH (14:32)
[2019-02-19 14:45] LABS: AMYLASE, BODY FLUID 29 U/L (NOT ESTABLISHED); CHOLESTEROL, BODY FLUID 83 MG/DL (NOT ESTABLISHED); LDH, BODY FLUID 666 U/L (NOT ESTABLISHED); SOURCE, BODY FLUID ALBUMIN PLEURAL; SOURCE, BODY FLUID AMYLASE PLEURAL; SOURCE, BODY FLUID CHOL PLEURAL; SOURCE, BODY FLUID GLUCOSE PLEURAL; SOURCE, BODY FLUID LDH PLEURAL; SOURCE, BODY FLUID TOT PROTEIN PLEURAL; SOURCE, BODY FLUID TRIG PLEURAL; TOTAL PROTEIN, BODY FLUID 4.3 G/DL (NOT ESTABLISHED); TRIGLYCERIDE, BODY FLUID 48 MG/DL (NOT ESTABLISHED)
[2019-02-19 15:01] LABS: PH BODY FLUID 7.453 UNITS (NOT ESTABLISHED); SOURCE, BODY FLUID pH PLEURAL
--- NOTE | 2019-02-19 15:01 | REP ---
HISTORY: Status post chest tube placement. COMPARISON: 02/16/2019 The technique utilized in obtaining the radiograph has magnified the cardiac silhouette and accentuated the interstitial markings. Since the last examination, a right-sided thoracotomy tube has been placed. The tip is in the mid portion of the aerated lung field. There are no other significant changes compared to the prior exam. Electronically Signed by Logan Gusman DO 02/19/2019 03:37 P
[2019-02-19] MEDS ORDERED: LIDOCAINE 1% MDV 20ML VIAL SC ONE (15:15)
[2019-02-19] MEDS ORDERED: MIDAZOLAM INJ 2 MG/2 ML VIAL (J2250) IV ONE (15:15)
--- NOTE | 2019-02-19 17:54 | IPNPDOC ---
Text Note Date of Service The patient was seen on 02/19/19. NOTE Subjective: Patient complains of shortness of breath, he was 3 L of oxygen in the morning. Dr. Gomez placed chest tube today. After chest tube placement breathing markedly improved Objective Gen morbidly obese male HEENT PERRLA, EOMI, no JVD CV S1 and S2 regular Lungs Diminished lung sounds bilaterally, mild expiratory wheezes Extremitas no swelling no cyanosis Assessment and plan Patient is 38 years old male with past medical history morbid obesity and smoking abuse presented hospital with dyspnea, right-sided chest pain, cough and sputum production. Patient fail treatment with doxycycline and steroids. Patient was found to have sepsis secondary to right lobe pneumonia with right pleural effusion. Chest x-ray showed significant right lower lobe opacity, which is tashi picious for consolidation. Chest CT stat showed right pleural effusion Thoracocentesis was done on 02/17/19 435 ml of serosanguineous fluid drained. Patient receives treatment with IV vancomycin and Zosyn IV. After MRSA negative test vancomycin was discontinued. On 02/18/19 patient developed increased shortness of breath again. Added levofloxacin. On 02/18/19 CTA was done, it was negative PE , but showed increased recurrent right pleural effusion. Dr. Gomez placed chest tube on 02/19/19. After chest tube placement breathing markedly improved Sepsis Chest tube placed Secondary to right-sided pneumonia. Chest CT stat showed right pleural effusion Pleuracentesis was done, pleuritic fluid analysis pending Patient has increased shortness of breath today PO steroid Pro-calcitonin pending Zosyn IV day 4 MRSA negative Urine analysis Streptococcus negative Incentive spirometry Inhalers IV fluid Acute hypoxemic respiratory failure see above VS,Joannae, I+O VS, [place], I+O Laboratory Tests 02/19/19 04:13 Red Blood Count 4.63, Mean Corpuscular Volume 90.9, Mean Corpuscular Hemoglobin 30.7, Mean Corpuscular Hemoglobin Concent 33.7, Red Cell Distribution Width 13.6, Neutrophils (%) (Auto) 85.3 H, Lymphocytes (%) (Auto) 5.2 L, Monocytes (%) (Auto) 8.3 H, Eosinophils (%) (Auto) 0.0, Basophils (%) (Auto) 0.1, Neutrophils # (Auto) 19.2 H, Lymphocytes # (Auto) 1.2 L, Monocytes # (Auto) 1.9 H, Eosinophils # (Auto) 0.0, Basophils # (Auto) 0.0, Calcium Level 8.3 L Vital Signs Date Time Temp Pulse Resp B/P (MAP) Pulse Ox O2 Delivery O2 Flow Rate FiO2 02/19/19 16:00 97.6 100 20 104/54 (71) 93 4.0 02/15/19 19:30 Room Air 02/15/19 15:13 92 I&O- Last 24 Hours up to 6 AM 02/19/19 06:00 Intake Total 1100 ml Output Total 1050 ml Balance 50 ml JACK ADLER DO Feb 19, 2019 17:54
--- NOTE | 2019-02-19 18:09 | CR ---
DATE OF CONSULTATION: 02/19/2019 The patient is seen at the request of Dr. Phillips of the hospitalist service and Dr. Velásquez of pulmonary for a recurrent pleural effusion and continued chest pain. HISTORY OF THE PRESENT ILLNESS: The patient is a 38-year-old white male who approximately 10 days ago experienced acute pain in his right side laterally in the lower right hemithorax, which was accentuated by taking a deep breath. This was soon followed by shortness of breath, more because of pain rather than intrinsic shortness of breath. Because of both the pain and the increasing shortness of breath, he sought attention in the emergency room. He was thought to represent a community-acquired pneumonia and was placed on doxycycline and prednisone. The pain got slightly better over the next couple of days but then returned with even more shortness of breath and pain. He started to develop a cough with at first red and then brown and black sputum production, turning to greenish-yellow. He started to develop fatigue and weakness and, again, returned to the emergency room. He was found to have a right lower lobe opacity on chest x-ray, and he was admitted. A CT of his chest done at that time showed a pleural effusion with right lower lobe consolidation. Effusion was drained under ultrasonic control. 435 mL of serosanguineous fluid was drained, but was only sent for cultures without hematologies, cytologies or chemistries. Since then, his pain has continued and along with shortness of breath, and a CT angio done yesterday did not show a pulmonary embolism but rather return of the pleural effusion, which now looks loculated. In addition, he has right lower lobe compression and/or consolidation. PAST MEDICAL HISTORY: Obesity. ALLERGIES: None. MEDICATIONS AT HOME: Was only the doxycycline. PAST SURGICAL HISTORY: Tonsils and adenoids as a child. TRAVEL HISTORY: He has been to [place] and driven through all the states from here to [place]. No travel to out west or foreign travel, other than [place]. HABITS: Smokes one pack per day. He used to smoke two packs per day of [place]. He states that as of last , he is going to quit. Denies alcohol intake and does marijuana about once a week. 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 No convincing asbestos exposure. OTHER EXPOSURES: He has one dog, a Khan Retriever. No birds or cats and has not been exposed to tuberculosis. FAMILY HISTORY: Not contributory or pertinent to the acute situation. REVIEW OF SYSTEMS: CONSTITUTIONAL: Denies fevers or chills. Does have some sweats. He attributes the sweats to his obesity, although this is an unusual occurrence of sweats. EYES: Without diplopia, without amaurosis fugax, without prior jaundice. NOSE: Without epistaxis. MOUTH: Has his own teeth. RESPIRATORY: See history of the present illness. CARDIAC: See history of the present illness. Without palpitations, tachycardia, paroxysmal nocturnal dyspnea. Has in the past week had difficulty lying down and has used pillows and has inclined his bed. Denies leg swelling, peripheral edema. GASTROINTESTINAL (GI): Without nausea or vomiting. Only has occasional diarrhea without melena, hematochezia, hematemesis, or abdominal pain. GENITOURINARY (): Without dysuria, hematuria, or prior renal stones. ENDOCRINE: Without known diabetes or thyroid disease. PSYCHIATRIC: Without pathological anxieties, depressions, or psychoses. NEUROLOGIC: Without paresthesias, paralyses, or prior seizures. HEMATOLOGIC: Without prolonged bleeding times. PHYSICAL EXAMINATION: An obese, well-developed, well-nourished white male in mild distress with chest discomfort and shortness of breath. VITAL SIGNS: Temperature is 98.8, heart rate of 83 and is sinus rhythm, respiratory rate of 18 without the use of accessory muscles who is 94% saturated on three liters nasal cannula and whose blood pressure is 124/60. HEAD: Normocephalic. EYES: Pupils equal, round and reactive to light. Extraocular motor intact. Sclerae nonicteric. NOSE: Without deformity. MOUTH: Shows his mucous membranes to be pink and moist. Lips and commissures without lesions. There is no thrush. Teeth are in good repair. NECK: Neck is supple. There is no jugular venous distention. No subcutaneous emphysema. Trachea is midline. There is no carotid bruits. He has 2+ carotid upstrokes. No thyromegaly or lymphadenopathy. LUNGS: Show decreased breath sounds in the right lower hemithorax with e to a egophony. Percussion note is dull to percussion in the right hemithorax as far as I can hear with his obesity. Left lung shows normal vesicular sounds without wheezes, rhonchi, or rales. Percussion note is full to the diaphragm on the left. CARDIAC: Cardiac exam is without murmurs, clicks, gallops or rubs. I cannot feel his point of maximum impulse (PMI) through his obesity. S1, S2 are normal. ABDOMEN: Soft, nontender. Bowel sounds are positive. There is no hepatomegaly that I can feel through his obesity. No costovertebral angle (CVA) tenderness except referable probably to his pneumonia and pleuritic irritation on the right side. EXTREMITIES: Show no pretibial edema, no calf tenderness. No differential swelling of the upper extremities. SKIN: Warm, dry and perfused without cyanosis or mottling, including that of the nail beds and the knees. LYMPHATICS: Show no axillary, cervical or supraclavicular or subclavicular lymphadenopathy. PULSES: Show 2+ dorsalis pedis and 2+ radial pulses with a regular rate and rhythm. NEUROLOGIC: Shows II-XII intact along with gross motor and gross sensation intact. Gait is not tested. PSYCHIATRIC: Shows him to be awake and alert, oriented times three with appropriate mood and affect and conversational. INVESTIGATIONS: His white count today is 22.6, which has steadily been going up, even on antibiotics of Zosyn and vancomycin. Hemoglobin and hematocrit are 4.2 and 42.1 respectively with a platelet count of 256. Differential shows 85% neutrophils, 5% lymphocytes, 8% monocytes. There are no immature forms. No toxic granulations. Electrolytes are normal with a BUN and creatinine of 12 and 0.82, a glucose of 141, a calcium of 8.3, and a magnesium of 2.8. Albumin on 02/15/2019 was 3.0. As noted above, the last pleural sample there were no studies requested other than culture. For some reason, it is listed that the culture was not indicated by the laboratory. His CT scan today shows what is no doubt a loculated pleural effusion. It is mostly inferior. Lung is compressed or consolidated beneath it. I see air bronchograms consistent with consolidation. There is no pericardial effusion. Left lung essentially a normal appearance with some emphysematous changes in the upper lobe. There is no pulmonary embolism. The CT was done under angiographic protocol. There is no mediastinal lymphadenopathy. IMPRESSION: 1. Right lower lobe pneumonia with a gram-stain that shows a few gram-positive rods, many gram-positive cocci with a sputum culture that is reported as normal dominique. 2. Pleural effusion, probably parapneumonic. 3. Obesity. 4. Tobacco abuse. 5. Hypoxia. PLAN AND DISCUSSION: Because his white count is still going up, and he still has pleuritic chest pain and is not responding to antibiotics, we have to assume that the pleural effusion is a contributing cause of his symptomatology and lack of response. I will, therefore, place a chest tube inferiorly and laterally. I will have to place it just below the level of the nipple as his diaphragm is riding very high. He is morbidly obese, and this is not going to be an easy chest tube. If I get thick pus, I will probably followup with a CT exam tomorrow and then a TPA pleurolysis. In the meantime, he should stay on the Zosyn and vancomycin. I am not clear why he is on steroids. They only serve to confuse the interpretation of the white count. I hear no wheezing to suggest bronchospasm in need of steroids. MTDD
[2019-02-19] MEDS: FAMOTIDINE 20 MG TAB PO SCH (21:06)
[2019-02-20] MEDS: PIPERACILLIN/TAZOBACTAM SOD 4.5 GM in D5W MINI-BAG PLUS 100 ML IV SCH ×3 (00:25→10:43)
[2019-02-20] MEDS: IPRATROPIUM 0.5MG/ALBUTEROL 2.5MG INH SOL UD 3ML (DUONEB)(J7620) INH SCH ×6 (03:05→23:43)
[2019-02-20 04:00] VITALS: BP 137/62
[2019-02-20] MEDS: KETOROLAC 30 MG/ML VIAL (J1885) IV SCH ×4 (04:15→21:03)
[2019-02-20] MEDS: SLF 3 ML SYR IV SCH ×3 (04:16→21:03)
[2019-02-20 04:26] LABS: BASO % 0.1 % (0.0-1.0); EOS % 0.1 % (0.0-3.0); HEMATOCRIT 38.9 % (42.0-52.0); HEMOGLOBIN 12.8 g/dl (13.5-17.5); LYMPH # 2.4 10^3/uL (1.5-4.5); LYMPH % 11.7 % (24.0-44.0); MEAN CORPUSCULAR HEMOGLOBIN 29.5 pg (27.0-33.0); MEAN CORPUSCULAR HGB CONC 32.9 g/dl (32.0-36.5); MEAN CORPUSCULAR VOLUME 89.6 fl (80.0-96.0); MONO # 1.2 10^3/uL (0.0-0.8); MONO % 6.1 % (0.0-5.0); NEUTROPHILS # 16.3 10^3/uL (1.8-7.7); NEUTROPHILS % 80.8 % (36.0-66.0); PLATELET COUNT, AUTOMATED 260 10^3/uL (150-450); RED BLOOD COUNT 4.34 10^6/uL (4.30-6.10); WHITE BLOOD COUNT 20.3 10^3/uL (4.0-10.0)
[2019-02-20 04:45] LABS: BLOOD UREA NITROGEN 19 MG/DL (7-18); CALCIUM LEVEL 7.9 MG/DL (8.5-10.1); CARBON DIOXIDE LEVEL 25 MEQ/L (21-32); CHLORIDE LEVEL 112 MEQ/L (98-107); CREATININE FOR GFR 1.05 MG/DL (0.70-1.30); GLOMERULAR FILTRATION RATE > 60.0 (>60); GLUCOSE, FASTING 211 MG/DL (70-100); MAGNESIUM LEVEL 2.5 MG/DL (1.8-2.4); POTASSIUM SERUM 3.7 MEQ/L (3.5-5.1); SODIUM LEVEL 143 MEQ/L (136-145)
[2019-02-20 08:00] VITALS: BP 120/58
[2019-02-20] MEDS: guaiFENesin ER 600 MG TAB PO SCH ×2 (08:43→21:02)
[2019-02-20] MEDS: HEPARIN SOD (PORCINE) 5000 UNITS/ML VIAL SC SCH ×2 (08:43→21:00)
[2019-02-20] MEDS: PANTOPRAZOLE 40MG TAB (PROTONIX) PO SCH (08:43)
[2019-02-20] MEDS: DOCUSATE SODIUM 100 MG CAP PO SCH ×2 (08:44→21:00)
[2019-02-20] MEDS: MOM 30ML SUSPENSION UDC PO SCH (08:45)
--- NOTE | 2019-02-20 08:50 | REP ---
PA and lateral chest: Comparison is the portable chest dated 02/19/2019. There is a right thoracotomy tube, unchanged in position. The right pleural effusion has decreased in size. There is no pneumothorax. Left lung is clear. Cardiac size is normal. Electronically Signed by Tomás Murray MD 02/20/2019 08:41 A
[2019-02-20] MEDS ORDERED: predniSONE 20 MG TAB PO SCH (09:00)
--- NOTE | 2019-02-20 10:38 | REP ---
CT of the chest without IV contrast: Comparison is 02/18/2019. There is a partially loculated right pleural effusion. There has been interval placement of a right thoracotomy tube. The thoracotomy tube tip is located in the pleural space posteriorly in the the right upper lobe. The partially loculated right pleural effusion has decreased in size but has not completely resolved. There is compression atelectasis as a consequence of the right pleural effusion in the right upper lobe, middle lobe and lower lobe. This has not significantly changed. There is a subsegmental infiltrate posteriorly in the left lower lobe, unchanged. No mediastinal or axillary lymph node enlargement is identified. The study is insensitive for hilar lymph node enlargement in the absence of IV contrast. Cardiac size is normal. There is no pericardial effusion. The unenhanced thoracic aorta is unremarkable. The visualized upper abdominal contents are unremarkable. Impression: There has been interval placement of a right thoracotomy tube. The partially loculated right pleural effusion has decreased in size. There is persisting atelectasis in the right upper, middle and lower lobes. There is a persisting subsegmental infiltrate in the left lower lobe. Electronically Signed by Tomás Murray MD 02/20/2019 10:28 A
--- NOTE | 2019-02-20 11:17 | IPN ---
DATE: 02/20/2019 It is now 24 hours since the chest has been placed in Mr. Ortiz. Clinically, he is doing quite well today. His pain is much better. He has put out very little since the initial chest tube placement. I did to a CT on him today to check the status of the pleural effusion as he was not draining very much, and indeed there is very little fluid left in the costophrenic angle. His vital signs show a T-max of 98.7 with a heart rate that ranges between 93 and 100 and is sinus rhythm, respiratory rate of 18-20 without the use of accessory muscles, who is 94-96% saturated on 4 liters nasal cannula, now down to 3 liters. His blood pressure is 143/63 to 137/62. His intake and output the past 24 hours has been recorded as 2738 in and 1367 out for a positivity of 1371 mL. He has put out 35 mL since his chest tube was placed yesterday after the initial drainage of 500 mL. On physical examination, his right lung is clearing. E-to-A egophony is less in the right lower hemithorax. He still has inspiratory crackles, but these too are much less. There is also transmitted breath sounds in the right lower hemithorax. Percussion note is full to the diaphragm as far as I can tell through his obesity on both sides. His left lung shows normal vesicular sounds. Cardiac exam is without murmurs, clicks, gallops or rubs. I cannot feel his point of maximal impulse (PMI). S1 and S2 are normal. Abdomen is soft and nontender. Bowel sounds are positive. There is no hepatomegaly. No costovertebral angle (CVA) tenderness. Most significantly, there was some CVA tenderness yesterday and some right upper quadrant pain to deep palpation and that has now resolved. Extremities show no pretibial edema. No calf tenderness. No differential swelling of the upper extremities. Skin is warm, dry and perfused without cyanosis or mottling including that of the nail beds and the knees. Neck is supple. There is no jugular venous distention. No subcutaneous emphysema. Trachea is midline. Mouth shows his mucous membranes to be pink and moist. Lips and commissures are without lesions. There is no thrush. Eyes show his pupils to be equal and reactive. Extraocular motors are intact. Sclera nonicteric. Neuro shows II through XII intact, along with gross motor and gross sensation intact. Gait is also intact. His white count today is 20.3, slightly down from 22.6 yesterday. Hemoglobin and hematocrit are 12.8 and 38.9, slightly down from yesterday's of 14.2 and 42.1, probably secondary to hemodilution. Platelet count is 260 and differential shows 80% neutrophils, 11% lymphocytes, 6% monocytes. There are no immature forms, no toxic granulations. His electrolytes are essentially normal with a BUN and creatinine of 19 and 1.05. Glucose is 211 with a calcium of 7.9 and a magnesium of 2.5. His pleural fluid has been returned with a pH of 7.45, a LDH of 666 with a corresponding serum LDH of 153. Glucose was 89. He has 3000 white cells, 95% of which are PMNs. This therefore looks like an exudative neutrophilic effusion compatible with a parapneumonic effusion and/or empyema. His chest x-ray today shows more clearing of the costophrenic angle although he has opacities on the lateral film. His chest CT done today, as noted above, shows some minimal residual fluid in the costophrenic angle. He has air bronchograms in infiltrative patterns consistent with consolidation, which was no doubt a pneumonia. Chest tube is in good place posteriorly. There is no pericardial effusion. There is no microbiology back on his pleural fluid, but notably on gram stain there were no organisms seen. Final pathology is still pending. IMPRESSION: 1. Right lower lobe pneumonia. 2. Empyema. 3. Obesity. 4. Tobacco abuse. 5. Hypoxia, improving. PLAN AND DISCUSSION: I will keep his chest tube on suction for yet another day. I do not think much more is going to come out, however. Because of the small amount of fluid left, I do not think that he needs a tPA pleurolysis. I have recommended that his steroids be discontinued. He is continuing on chest expansion therapy with his spirometry and PEP therapy. I will plan to take the chest tubes out tomorrow and I can see that he might be able to be discharged on Monday on an oral antibiotic. Will continue to await the cultures. ANNIKA
[2019-02-20 11:20] VITALS: BP 139/75
[2019-02-20] MEDS: LevoFLOXacin IV 500 MG in IV 1 EA IV SCH (12:21)
[2019-02-20] MEDS: PERCOCET 5MG/325MG TAB PO PRN ×2 (12:22→18:48)
--- NOTE | 2019-02-20 16:49 | IPNPDOC ---
Text Note Date of Service The patient was seen on 02/20/19. NOTE Subjective: Patient seen and examined at bedside. States he is doing okay Objective Gen morbidly obese male HEENT PERRLA, EOMI, no JVD CV: S1 and S2 regular, Lungs Diminished lung sounds bilaterally, mild expiratory wheezes, chest tube in place [place] no swelling no cyanosis Assessment and plan Patient is 38 years old male with past medical history morbid obesity and smok ing abuse presented hospital with dyspnea, right-sided chest pain, cough and sputum production. Patient fail treatment with doxycycline and steroids. Patient was found to have sepsis secondary to right lobe pneumonia with right pleural effusion. Chest x-ray showed significant right lower lobe opacity, which is suspicious for consolidation. Chest CT stat showed right pleural effusion Thoracocentesis was done on 02/17/19 435 ml of serosanguineous fluid drained. Patient receives treatment with IV vancomycin and Zosyn IV. After MRSA negative test vancomycin was discontinued. On 02/18/19 patient developed increased shortness of breath again. Added levofloxacin. On 02/18/19 CTA was done, it was negative PE , but showed increased recurrent right pleural effusion. Dr. Gomez placed chest tube on 02/19/19. After chest tube placement breathing markedly improved #Sepsis 2/2 empyema -Chest tube placed by thoracic surgery yesterday. Plan to remove chest tube tomorrow -As per pulmonology patient is on PO steroid, Zosyn IV day 5 Acute hypoxemic respiratory failure see above DVT prophylaxis subcutaneous heparin disposition per pulmonary recommendations VS,Fishbone, I+O VS, Fishbone, I+O Laboratory Tests 02/20/19 04:06 Red Blood Count 4.34, Mean Corpuscular Volume 89.6, Mean Corpuscular Hemoglobin 29.5, Mean Corpuscular Hemoglobin Concent 32.9, Red Cell Distribution Width 13.4, Neutrophils (%) (Auto) 80.8 H, Lymphocytes (%) (Auto) 11.7 L, Monocytes (%) (Auto) 6.1 H, Eosinophils (%) (Auto) 0.1, Basophils (%) (Auto) 0.1, Neut rophils # (Auto) 16.3 H, Lymphocytes # (Auto) 2.4, Monocytes # (Auto) 1.2 H, Eosinophils # (Auto) 0.0, Basophils # (Auto) 0.0, Calcium Level 7.9 L Vital Signs Date Time Temp Pulse Resp B/P (MAP) Pulse Ox O2 Delivery O2 Flow Rate FiO2 02/20/19 16:00 97.3 91 18 95 2.0 02/20/19 11:20 139/75 (96) 02/19/19 23:00 Full Face Mask 02/15/19 15:13 92 I&O- Last 24 Hours up to 6 AM 02/20/19 06:00 Intake Total 2638 ml Output Total 1240 ml Balance 1398 ml AMARA PARSONS MD Feb 20, 2019 16:49
--- NOTE | 2019-02-20 17:48 | IPN ---
PULMONARY PROGRESS NOTE DATE: 02/20/2019 SUBJECTIVE: Patient examined at bedside and is in good spirits and feeling much better today, less cough and less sputum production. He remains on supplemental oxygen, 2-3 liters nasal cannula today. Chest tube has minimal drainage, per staff around 50 mL since midnight into this morning. He has no complaints today. No fevers, chills, nausea, vomiting, abdominal pain. He states he ambulated the hallways without any difficulty. PHYSICAL EXAMINATION: VITAL SIGNS: Temperature 97.1, pulse 94, respirations 18, blood pressure (BP) 120/58, mean arterial pressure (MAP) of 78, pulse oximetry 96% on 3 liters nasal cannula. GENERAL: Resting comfortably in bed in no acute distress. Alert and oriented times four. Speaking in full sentences without any pauses. HEENT: Normocephalic, atraumatic. Extraocular muscles intact. Anicteric sclerae. Moist mucous membranes. Poor dentition. Supple neck. CARDIAC: Regular rate and rhythm. Normal S1, S2 without any murmur, clicks, gallops. LUNGS: Chest tube placed on the right chest wall with fine crackles in the surrounding lung quigley. Minimal egophony and dullness to percussion today. Clear lung sounds on the left. No accessory muscle usage or cyanosis. ABDOMEN: Obese, soft, nontender, nondistended. Positive bowel sounds. EXTREMITIES: Pulses 2+ without any peripheral edema or calf tenderness. SKIN: No visible lesions or rashes. Patient has multiple tattoos. LABORATORY DATA: WBC 20.3, hemoglobin and hematocrit 12.8 and 38.9, platelets 260. Sodium and potassium 143 and 3.7, BUN and creatinine 19 and 1.05. Procalcitonin 0.1. Negative for Legionella and Streptococcus pneumoniae. Remainder of serology pending. His pleural fluid from his chest tube placed by Dr. Gomez 02/19/2019 reveals a pH 7.45 with 3000 WBC, of which 95% are PMNs. Glucose 89, total protein 4.3, albumin 1.8, LDH 666. Remainder of fluid microbiology is pending as well as cytology. IMAGING: Chest x-ray this morning is read as right thoracotomy tube unchanged in position, right pleural effusion decreased in size. No pneumothorax. Left lung clear. Agree with findings. Chest CT done today is read as partially loculated right pleural effusion, decreased in size. There is persisting atelectasis in the right upper, middle, and lower lobes. There is persisting subsegmental infiltrate in the left lower lobe. Upon visualization, we agree that his effusion is decreased from prior to the chest tube, and he likely has atelectasis throughout without any new visible infiltrates. ASSESSMENT: 1. Acute hypoxemic respiratory failure in the setting of community-acquired pneumonia. 2. Likely complicated parapneumonic effusion, status post chest tube 02/19/[address] Gomez and thoracentesis on 02/18/2019. 3. Tobacco use. 4. Possible obstructive sleep apnea (GAIL). 5. Morbid obesity, body mass index (BMI) 46. PLAN: Patient is clinically improving with less drainage out of his chest tube, being managed by Dr. Gomez. Titrate down oxygen to maintain saturations above 90 and encourage ambulation and continue incentive spirometry given his atelectasis on imaging. He continues to be afebrile with white count trending down. Discontinue steroids given his pleural fluid analysis and no prior history of lung disease. Although pleural fluid is not specifically diagnostic of an empyema or complicated pleural effusion, it is very likely that he indeed had a complicated pleural effusion that is now improving given his extensive antibiotic introduction over the past 1 week as well as his recent thoracentesis done on the and now chest tube placed on February 19. His imaging seems to be improved from prior days. Discontinue Zosyn and continue Levaquin for a total course of 2 weeks from start date, which should be sufficient for his respiratory infection, most concerning being Streptococcus pneumoniae. Remaining serology and microbiology is pending. Followup on this. The patient was counseled on smoking cessation, which he is motivated to do so, and given his BMI of 46, there is concern for GAIL, for which he should followup in the outpatient setting with Dr. Velásquez. This was discussed with the patient. At this point, chest tube is being managed per Dr. Gomez, and there is no other new pulmonary concern at this time. We will sign off the case. Please do not hesitate to contact us shall we be of further need. My faculty preceptor for this patient encounter was physically present during the encounter and was fully available. All aspects of the patient interview, examination, medical decision making process, and medical care plan development were reviewed and approved by the faculty preceptor. The faculty preceptor is aware and concurs with the plan as stated in the body of this note and will attest to such by his/her co-signature. ADDENDUM: I, Dr. Mike Kelly, was present and participated in the history and physical examination and agree with the documentation. I discussed the assessment and plan with the resident and agree with the above documentation. ANNIKA
[2019-02-20 20:00] VITALS: BP 151/70
[2019-02-20] MEDS: FAMOTIDINE 20 MG TAB PO SCH (21:02)
[2019-02-20 23:59] VITALS: BP 126/76
[2019-02-21] MEDS: PERCOCET 5MG/325MG TAB PO PRN ×2 (03:09→12:32)
[2019-02-21] MEDS: KETOROLAC 30 MG/ML VIAL (J1885) IV SCH ×4 (03:09→20:51)
[2019-02-21 04:00] VITALS: BP 125/59
[2019-02-21] MEDS: IPRATROPIUM 0.5MG/ALBUTEROL 2.5MG INH SOL UD 3ML (DUONEB)(J7620) INH SCH ×5 (04:00→20:09)
[2019-02-21] MEDS: SLF 3 ML SYR IV SCH ×3 (05:05→20:52)
[2019-02-21 05:55] LABS: BASO % 0.1 % (0.0-1.0); EOS # 0.2 10^3/uL (0.0-0.50); EOS % 1.2 % (0.0-3.0); HEMATOCRIT 39.3 % (42.0-52.0); HEMOGLOBIN 12.8 g/dl (13.5-17.5); LYMPH % 20.7 % (24.0-44.0); MEAN CORPUSCULAR HEMOGLOBIN 29.5 pg (27.0-33.0); MEAN CORPUSCULAR HGB CONC 32.6 g/dl (32.0-36.5); MEAN CORPUSCULAR VOLUME 90.6 fl (80.0-96.0); MONO # 0.9 10^3/uL (0.0-0.8); MONO % 6.3 % (0.0-5.0); NEUTROPHILS # 10.2 10^3/uL (1.8-7.7); NEUTROPHILS % 69.7 % (36.0-66.0); PLATELET COUNT, AUTOMATED 249 10^3/uL (150-450); RED BLOOD COUNT 4.34 10^6/uL (4.30-6.10); WHITE BLOOD COUNT 14.7 10^3/uL (4.0-10.0)
[2019-02-21 06:19] LABS: BLOOD UREA NITROGEN 17 MG/DL (7-18); CALCIUM LEVEL 7.9 MG/DL (8.5-10.1); CARBON DIOXIDE LEVEL 26 MEQ/L (21-32); CHLORIDE LEVEL 111 MEQ/L (98-107); CREATININE FOR GFR 0.83 MG/DL (0.70-1.30); GLOMERULAR FILTRATION RATE > 60.0 (>60); GLUCOSE, FASTING 107 MG/DL (70-100); MAGNESIUM LEVEL 2.3 MG/DL (1.8-2.4); POTASSIUM SERUM 3.6 MEQ/L (3.5-5.1); SODIUM LEVEL 143 MEQ/L (136-145)
[2019-02-21 08:00] VITALS: BP 143/73
[2019-02-21] MEDS: HEPARIN SOD (PORCINE) 5000 UNITS/ML VIAL SC SCH ×2 (08:53→21:00)
[2019-02-21] MEDS: PANTOPRAZOLE 40MG TAB (PROTONIX) PO SCH (08:54)
[2019-02-21] MEDS: guaiFENesin ER 600 MG TAB PO SCH ×2 (08:54→20:51)
[2019-02-21] MEDS: DOCUSATE SODIUM 100 MG CAP PO SCH ×2 (08:54→21:00)
[2019-02-21] MEDS: MOM 30ML SUSPENSION UDC PO SCH (08:54)
--- NOTE | 2019-02-21 10:15 | REP ---
Chest x-ray: Two views. History: Pneumonia. Pleural effusion. Comparison chest x-ray: February 20, 2019. Findings: EKG monitoring electrodes overlie the chest. There is a right-sided chest tube in place unchanged. There is coarse plate-like atelectasis in the right lung base. Right hemidiaphragm is somewhat elevated. There is right pleural thickening. These findings are unchanged from the previous day's radiographs. No new infiltrate is seen. Electronically Signed by Brendon Wilson MD 02/21/2019 10:07 A
[2019-02-21 12:00] VITALS: BP 140/80
[2019-02-21] MEDS: LevoFLOXacin IV 500 MG in IV 1 EA IV SCH (12:32)
--- NOTE | 2019-02-21 12:33 | IPN ---
DATE: 02/21/2019 Mr. Ortiz is doing quite well today. His pain is being well controlled at the chest tube insertion site. He does complain of shortness of breath. His vital signs show a maximum temperature (t-max) of 97.3 with a heart rate that ranges between 86 and 88 in a sinus rhythm, respiratory rate of 16 to 18 without the use of accessory muscles, who is 100% saturated on 1 liter nasal cannula. His blood pressure is ranging between 143/73 to 125/59. His intake and output over the past 24 hours has been recorded as 2030 in and 233 out for a positivity of 1797 mL. He has only put out 33 mL from the chest tube. I suspect that his input and output are inaccurate with regard to his urine output as he has had three voids. Weight today is 156.1 kg compared to 159.4 kg yesterday. PHYSICAL EXAMINATION: LUNGS: His right lung shows some slightly decreased breath sounds in the right lower lobe. I do not detect wheezes, rhonchi or rales however. Percussion notes are full to the diaphragm as far as I can tell through his obesity. CARDIAC EXAM: Without murmurs, clicks, gallops or rubs. I cannot feel his point of maximum impulse (PMI). S1, S2 are normal. ABDOMEN: Soft, nontender. Bowel sounds positive. There is no hepatomegaly. No costovertebral angle tenderness. EXTREMITIES: Show no pretibial edema. No calf tenderness. No differential swelling of the upper extremities. SKIN: Warm, dry and perfused without cyanosis or mottling, including that of the nail beds and knees. NECK: Supple. There is no jugular venous distention. No subcutaneous emphysema. Trachea is midline. MOUTH: Shows his mucous membranes to be pink and moist. Lips and commissures without lesions. There is no thrush. EYES: Show his pupils to be equal and reactive. Extraocular motion intact. Sclerae anicteric. NEUROLOGIC: Shows II through XII intact with gross motor and gross sensation intact. Gait is also intact. PSYCHIATRIC: Shows him to be awake and alert, oriented times three with appropriate mood and affect and conversational. LABORATORY DATA: His white count today is down to 14.7 from 20.3 yesterday. Hemoglobin and hematocrit are 12.8 and 39.3, essentially unchanged from yesterday with a platelet count of 249 and stable. Differential shows 69% neutrophils, 20% lymphocytes, 6% monocytes. There are no immature forms, no toxic granulations. His electrolytes are normal with a BUN and creatinine of 17 and 0.83, down from 19 and 1.05 yesterday. Glucose is 107 with a calcium of 7.9 and a magnesium of 2.3. I discussed his pleural fluid yesterday being neutrophilic and exudative, consistent with an empyema/parapneumonic effusion. His chest x-ray today is essentially unchanged from yesterday's. There is an opacity in the right lower hemithorax. I can clearly see the costophrenic angle, although there are elements of consolidation on both the lateral and PA film. IMPRESSION: 1. Right lower lobe pneumonia. 2. Empyema. 3. Obesity. 4. Tobacco abuse. 5. Hypoxia, improving. PLAN AND DISCUSSION: Pathology has again come back negative for malignancy. His pleural fluid culture has come back bacillus species, which has not been sent for sensitivities. It is not anthrax. It may very well be a contaminant. Sputum culture for evolution was not performed, even though there were moderate white cells with gram positive cocci in chains and pairs. He most likely had a pneumococcal pneumonia. His steroids have been discontinued and he is now on Levaquin IV and can be discharged on Levaquin orally. I will remove his chest tubes today. From my perspective, he can probably be discharged in the morning.
--- NOTE | 2019-02-21 13:19 | RO ---
DATE OF PROCEDURE: 02/19/2019 PREPROCEDURE DIAGNOSIS: Right pleural effusion, probably parapneumonic. POSTPROCEDURE DIAGNOSIS: Right pleural effusion, probably parapneumonic. PROCEDURE: Insertion of a right lateral chest tube with moderate sedation. SURGEON: Edouard Gomez MD SUPERINTENDENT OPERATING: ANESTHESIA: DESCRIPTION OF PROCEDURE: Under satisfactory moderate sedation eventually achieved with 6 mg of Versed, the patient was prepped and draped in the usual sterile fashion. The skin, subcutaneous tissue, and overlying extrathoracic muscles were infiltrated with 1% Lidocaine. Because of his morbid obesity, the needle was not long enough to get to the chest wall. A tunnel was created, and with additional Versed on board, a tunnel was created into the chest without difficulty. A #24 chest tube was placed and drained 500 mL of serosanguineous but mostly sanguinous fluid. This was sent for the requisite cultures, cytologies, along with hematologies and chemistries. The chest tube was secured to the chest wall with a #2 Tevdek suture. The patient tolerated the procedure well, and a chest x-ray is pending.
[2019-02-21 16:00] VITALS: BP 138/72
--- NOTE | 2019-02-21 16:42 | IPNPDOC ---
Date Seen The patient was seen on 02/21/19. Progress Note SUBJECTIVE: tolerated chest tube removal by Dr Gomez no complaints breathing comfortably OBJECTIVE PHYSICAL EXAMINATION: VITAL SIGNS: Please see below. GENERAL: NAD obese RESPIRATORY: CTAB EXTREMITIES: no c/c/e LABORATORY DATA, IMAGING STUDIES, MICROBIOLOGY: Please see below. ASSESSMENT AND PLAN: Patient is 38 years old male with past medical history morbid obesity and smoking abuse presented hospital with dyspnea, right-sided chest pain, cough and sputum production. Patient fail treatment with doxycycline and steroids. Patient was found to have sepsis secondary to right lobe pneumonia with right pleural effusion. #R PNA with pleural effusion sp thoracentesis 02/17 sp chest tube 02/19 chest tube removal today 02/21 Dr Gomez following abx have been deescalated to levaquin only bacillus in cx (not anthrax) likely contaminant per Dr Gomez can likely dc tomorrow w PO levaquin DVT prophylaxis subcutaneous heparin disposition per pulmonary recommendations . VS, I&O, 24H, Fishbone Vital Signs/I&O Vital Signs Date Time Temp Pulse Resp B/P (MAP) Pulse Ox O2 Delivery O2 Flow Rate FiO2 02/21/19 13:02 18 97 02/21/19 08:00 97.3 86 143/73 (96) 02/21/19 04:00 2.0 02/19/19 23:00 Full Face Mask 02/15/19 15:13 92 I&O- Last 24 Hours up to 6 AM0 02/21/19 06:00 Intake Total 2130 ml Output Total 40 ml Balance 2090 ml Laboratory Data 24H LABS Laboratory Tests 2 02/21/19 05:30: Immature Granulocyte % (Auto) 2.0, White Blood Count 14.7H, Red Blood Count 4.34, Hemoglobin 12.8L, Hematocrit 39.3L, Mean Corpuscular Volume 90.6, Mean Corpuscular Hemoglobin 29.5, Mean Corpuscular Hemoglobin Concent 32.6, Red Cell Distribution Width 13.6, Platelet Count 249, Neutrophils (%) (Auto) 69.7H, Lymphocytes (%) (Auto) 20.7L, Monocytes (%) (Auto) 6.3H, Eosinophils (%) (Auto) 1.2, Basophils (%) (Auto) 0.1, Neutrophils # (Auto) 10.2H, Lymphocytes # (Auto) 3.0, Monocytes # (Auto) 0.9H, Eosinophils # (Auto) 0.2, Basophils # (Auto) 0.0, Nucleated Red Blood Cells % (auto) 0.0, Anion Gap 6L, Glomerular Filtration Rate > 60.0, Blood Urea Nitrogen 17, Creatinine 0.83, Sodium Level 143, Potassium Level 3.6, Chloride Level 111H, Carbon Dioxide Level 26, Calcium Level 7.9L, Magnesium Level 2.3 CBC/BMP Laboratory Tests 02/21/19 05:30 Red Blood Count 4.34, Mean Corpuscular Volume 90.6, Mean Corpuscular Hemoglobin 29.5, Mean Corpuscular Hemoglobin Concent 32.6, Red Cell Distribution Width 13.6, Neutrophils (%) (Auto) 69.7 H, Lymphocytes (%) (Auto) 20.7 L, Monocytes (%) (Auto) 6.3 H, Eosinophils (%) (Auto) 1.2, Basophils (%) (Auto) 0.1, Neutrophils # (Auto) 10.2 H, Lymphocytes # (Auto) 3.0, Monocytes # (Auto) 0.9 H, Eosinophils # (Auto) 0.2, Basophils # (Auto) 0.0, Calcium Level 7.9 L Microbiology Microbiology 02/15/19 Blood Culture - Final, Complete NO GROWTH AFTER 5 DAYS 02/15/19 Blood Culture - Final, Complete NO GROWTH AFTER 5 DAYS 02/19/19 Acid Fast Stain, Received Pending 02/19/19 Mycobacterial Culture, Received Pending 02/19/19 Fungal Smear, Received Pending 02/19/19 Fungal Culture, Received Pending 02/19/19 Gram Stain - Final, Complete 02/19/19 Anaerobic Culture - Final, Complete 02/19/19 Body Fluid Culture - Final, Complete Bacillus Sp., Not Anthracis 02/19/19 Gram Stain - Final, Complete 02/19/19 Sputum Culture - Final, Complete 02/15/19 MRSA Screen - Final, Complete 02/15/19 Gram Stain - Final, Complete 02/15/19 Sputum Culture - Final, Complete MORALES GEORGE MD Feb 21, 2019 16:42
[2019-02-21 20:00] VITALS: BP 145/90
[2019-02-21] MEDS: FAMOTIDINE 20 MG TAB PO SCH (20:51)
[2019-02-22] VITALS: BP 148/89
[2019-02-22] MEDS: KETOROLAC 30 MG/ML VIAL (J1885) IV SCH ×2 (03:28→08:44)
[2019-02-22 04:00] VITALS: BP 137/60
[2019-02-22] MEDS: IPRATROPIUM 0.5MG/ALBUTEROL 2.5MG INH SOL UD 3ML (DUONEB)(J7620) INH SCH ×4 (04:00→11:29)
[2019-02-22 05:53] LABS: BASO # 0.1 10^3/uL (0.0-0.2); BASO % 0.5 % (0.0-1.0); EOS # 0.3 10^3/uL (0.0-0.50); EOS % 2.5 % (0.0-3.0); HEMATOCRIT 39.9 % (42.0-52.0); HEMOGLOBIN 13.1 g/dl (13.5-17.5); LYMPH # 2.4 10^3/uL (1.5-4.5); MEAN CORPUSCULAR HEMOGLOBIN 29.8 pg (27.0-33.0); MEAN CORPUSCULAR HGB CONC 32.8 g/dl (32.0-36.5); MEAN CORPUSCULAR VOLUME 90.9 fl (80.0-96.0); MONO # 0.7 10^3/uL (0.0-0.8); MONO % 6.8 % (0.0-5.0); PLATELET COUNT, AUTOMATED 222 10^3/uL (150-450); RED BLOOD COUNT 4.39 10^6/uL (4.30-6.10); WHITE BLOOD COUNT 10.8 10^3/uL (4.0-10.0)
[2019-02-22] MEDS: SLF 3 ML SYR IV SCH ×2 (06:12→13:14)
[2019-02-22 06:22] LABS: BLOOD UREA NITROGEN 13 MG/DL (7-18); CALCIUM LEVEL 7.9 MG/DL (8.5-10.1); CARBON DIOXIDE LEVEL 29 MEQ/L (21-32); CHLORIDE LEVEL 107 MEQ/L (98-107); CREATININE FOR GFR 0.81 MG/DL (0.70-1.30); GLOMERULAR FILTRATION RATE > 60.0 (>60); GLUCOSE, FASTING 84 MG/DL (70-100); MAGNESIUM LEVEL 2.2 MG/DL (1.8-2.4); POTASSIUM SERUM 3.7 MEQ/L (3.5-5.1); SODIUM LEVEL 142 MEQ/L (136-145)
[2019-02-22 08:00] VITALS: BP 135/80
--- NOTE | 2019-02-22 08:03 | REP ---
PA and lateral chest: Comparisons are 02/21/[address] dated 07/22/2018. The right thoracotomy tube has been removed. There is no pneumothorax. There is increased density inferiorly in the right lung compatible with pleural effusion and atelectasis, unchanged. Left lung is clear. Cardiac size is normal. The yash, mediastinum, skeletal structures are unremarkable. Impression: The right thoracotomy tube has been removed. There is no pneumothorax. Persisting increased density inferiorly in the right lung, unchanged Electronically Signed by Tomás Murray MD 02/22/2019 07:54 A
[2019-02-22] MEDS ORDERED: BACITAB PO (08:11)
[2019-02-22] MEDS ORDERED: LEVA1TAB2 PO (08:11)
[2019-02-22] MEDS ORDERED: PERCOCET PO (08:11)
[2019-02-22] MEDS: guaiFENesin ER 600 MG TAB PO SCH (08:43)
[2019-02-22] MEDS: PANTOPRAZOLE 40MG TAB (PROTONIX) PO SCH (08:45)
[2019-02-22] MEDS: DOCUSATE SODIUM 100 MG CAP PO SCH (08:45)
[2019-02-22] MEDS: MOM 30ML SUSPENSION UDC PO SCH (08:45)
[2019-02-22] MEDS: HEPARIN SOD (PORCINE) 5000 UNITS/ML VIAL SC SCH (08:45)
[2019-02-22] MEDS: LevoFLOXacin IV 500 MG in IV 1 EA IV SCH (13:14)
--- NOTE | 2019-02-24 19:30 | DSES ---
DATE OF ADMISSION: 02/15/2019 DATE OF DISCHARGE: 02/22/2019 CONSULTANTS: Edouard Gomez MD, thoracic surgery PROCEDURES: Chest tube placement for parapneumonic effusion. PRIMARY DISCHARGE DIAGNOSES: 1. Parapneumonic effusion requiring chest tube placement. 2. Morbid obesity, body mass index (BMI) of 47.5. 3. Probable obstructive sleep apnea. 4. Active tobacco smoking, smoking cessation counseling 10 minutes has been provided. 5. Acute hypoxemic respiratory failure in the setting of community-acquired pneumonia, active tobacco use. DISCHARGE MEDICATIONS: - Levaquin 500 mg daily for 7 days - Percocet one tablet every 4 hours, maximum dose of six, 5 days, 20 tablets dispensed - Bacid one tablet by mouth daily with meals - Ventolin two puffs every 4-6 hours for wheezing - ibuprofen 600 every 6 hours as needed for pain DISCHARGE INSTRUCTIONS: Followup with primary care physician within 5 days of discharge, Dr. Gomez in 7 days. HOSPITAL COURSE: This is a 38-year-old male with history of active smoking and morbid obesity, BMI of 47.5, presented to the emergency room with increasing shortness of breath, cough with greenish sputum. CT chest showed right lower lobe opacity with pleural effusion. Thoracic surgery was consulted for chest tube placement after ultrasound-guided thoracentesis yielded 435 mL of serosanguineous fluid. Patient was afebrile on admission, white count of 15,000 that peaked to 25.1. He was given intravenous antibiotics with Levaquin. Blood cultures were negative, no growth after 5 days. Pleural fluid grew out Bacillus, most likely contaminant. Sputum culture on 02/19/2019 was oropharyngeal. Patient had normalization of his white count while on Levaquin to 10.8 on the day of discharge. Chest tube was placed by thoracic surgery, output of 33 and 40 mL subsequently removed on 02/21/2019. Repeat chest x-ray showed no pneumothorax. There is persistent increased density in the right lung inferiorly which is unchanged. Patient was saturating 95-93% on room air, ambulating well, passed home safety evaluation and was subsequently discharged home. Pain was controlled on as needed Percocet and Toradol 30 mg IV every 6 hours. PHYSICAL EXAMINATION: On discharge: Temperature 97.5, pulse 95, respiratory rate 16, blood pressure 135/80, 95% on room air. Generally, patient is morbidly obese. No conversational dyspnea. No cyanosis. Pupils are reactive to light and accommodation, extraocular muscles are intact, anicteric. No jugular venous distention or thyromegaly. Moist mucous membranes. Lungs: Diminished, right base with fine crepitations. Left lung is clear. Heart: S1, S2, sinus rhythm. No murmurs, rubs, or gallops. Abdomen: Obese, soft, nontender, nondistended. Positive bowel sounds. No rebound, guarding. No hepatosplenomegaly. Extremities: No edema. LABORATORY DATA ON DISCHARGE: White count 10.8, hemoglobin 13, hematocrit 39, platelet count 222, sodium 142, potassium 3.7, chloride 107, bicarbonate 29, BUN 13, creatinine 0.81, glucose of 84. IMAGING STUDIES: Chest CT 02/15/2019 air space opacity posterior right upper lobe, consolidation right middle lobe and right lower lobe, significantly increased when compared to prior exam. Combination of pneumonia, atelectasis. Interval development of a moderate right parapneumonic effusion. 02/18/2019 CT chest no significant change in appearance, no gross evidence of pulmonary embolism, right pleural effusion loculted, asymmetric lung bases right greater than left in part representing subsegmental atelectasis. Pneumonia cannot be ruled out. Chest CT 02/20/2019 there has been interval placement of right thoracotomy tube, partially loculated right pleural effusion is decreased in size, persisting atelectasis in the right upper, middle, and lower lobe, persisting subsegmental infiltrate in the left lower lobe. TIME SPENT ON DISCHARGE: 32 minutes
[2019-02-26 00:10] LABS: CHLAMYDIA PNEUMONIAE IgM <1:10 (Neg:<1:10); MYCOPLASMA PNEUMONIAE IgG 1852 U/mL (0-99); MYCOPLASMA PNEUMONIAE IgM <770 U/mL (0-769)
--- NOTE | 2019-02-26 15:00 | DS.PDOC ---
Discharge Summary General Date of Admission Feb 15, 2019 at 18:25 Date of Discharge 02/22/19 Discharge Summary CLARIFICATION OF DISCHARGE DIAGNOSES: PROBABLE GRAM NEGATIVE PNEUMONIA RIGHT PARAPNEUMONIC EFFUSION Vital Signs/I&Os Vital Signs Date Time Temp Pulse Resp B/P (MAP) Pulse Ox O2 Delivery O2 Flow Rate FiO2 02/22/19 08:00 97.5 95 16 135/80 (98) 95 02/21/19 04:00 2.0 Microbiology Microbiology 02/19/19 Acid Fast Stain, Received Pending 02/19/19 Mycobacterial Culture, Received Pending 02/19/19 Fungal Smear, Received Pending 02/19/19 Fungal Culture, Received Pending 02/19/19 Gram Stain - Final, Complete 02/19/19 Anaerobic Culture - Final, Complete 02/19/19 Body Fluid Culture - Final, Complete Bacillus Sp., Not Anthracis 02/19/19 Gram Stain - Final, Complete 02/19/19 Sputum Culture - Final, Complete Discharge Medications Scheduled L.acidoph/L.bulg/B.bif/S.therm (Bacid Caplet) 1 Each Tablet, 1 TAB PO WM Levofloxacin (Levaquin) 500 Mg Tablet, 500 MG PO DAILY Scheduled PRN Albuterol Sulfate (Ventolin Hfa) 18 Gm Hfa.aer.ad, 2 PUFF INH Q4-6HP PRN for wheezing, (Reported) Ibuprofen (Ibuprofen) 600 Mg Tablet, 600 MG PO Q6H PRN for PAIN, (Reported) Oxycodone/Acetaminophen (Oxycodone-Acetaminophen 5-325) 1 Each Tablet, 1 TAB PO Q4HP PRN for MODERATE PAIN (PS 5-7) Allergies Coded Allergies: No Known Allergies (Unverified , 02/08/19) GAIL LANDIS MD Feb 26, 2019 14:58
== END 2019-02-22 14:39 | disposition home or self-care (01) | DRG 143 ==
LOC: M ED 14:26 → M ED INP 18:25 → M ICU 22:19 → M MS5PR 02-17 21:20 → M PCU 02-18 14:17
PROVIDERS: ADMIT Internal Medicine; ATTEND General Practice
PROC: 0W993ZX Drainage of Right Pleural Cavity, Percutaneous Approach, Diagnostic (ICD-10-PCS; 2019-02-16)
PROC: 0W9900Z Drainage of Right Pleural Cavity with Drainage Device, Open Approach (ICD-10-PCS; principal; 2019-02-19)
DX: J90 Pleural effusion, not elsewhere classified (principal); J96.01 Acute respiratory failure with hypoxia; J13 Pneumonia due to Streptococcus pneumoniae; E66.01 Morbid (severe) obesity due to excess calories; Z68.42 Body mass index [BMI] 45.0-49.9, adult; G47.33 Obstructive sleep apnea (adult) (pediatric); F17.210 Nicotine dependence, cigarettes, uncomplicated; Z79.899 Other long term (current) drug therapy

== ENCOUNTER → 2019-02-28 | Outpatient (CLI) | payer OTHER ==
[~2019-02-28] MED LIST changes: +BACITAB PO; +DOXY100T27 PO; +IBUP1TAB6 PO; +LEVA1TAB2 PO; +PERCOCET PO
--- NOTE | 2019-02-28 21:22 | REP ---
Clinical: Pleural effusion. Technique: PA and lateral. Findings: Decreased right pleural effusion and right mid to lower lobe pleuroparenchymal changes are appreciated as compared with 02/22/2019. Left hemithorax is clear. Visualized mediastinum and cardiac silhouette are normal. Skeletal structures are intact. Impression: Improved appearance to the pleuroparenchymal changes involving the right mid to lower lung zone. Electronically Signed by Jamie Motta MD 02/28/2019 09:12 P
== END ==
LOC: M SMT 10:51
PROVIDERS: ATTEND Thoracic Surgery (Cardiothoracic Vascular Surgery)
DX: J90 Pleural effusion, not elsewhere classified (principal)

== ENCOUNTER 2019-11-19 12:58 | Emergency (ER) | payer OTHER, SELFPAY ==
[~2019-11-19] VITALS: Ht 185.4 cm; Wt 134.6 kg
[2019-11-19 12:58] VITALS: BP 138/78
[2019-11-19] MEDS ORDERED: BOOSTRIX/ADACEL VACCINE (DIPHTH/PERTUSS/ACELL/TETANUS) 0.5ML SYR IM ONE (13:15)
[2019-11-19] MEDS ORDERED: LIDOCAINE W/EPINEPHRINE 1% 20ML VIAL SC ONE (13:30)
== END 2019-11-19 13:57 | disposition home or self-care (01) ==
LOC: M ED 12:58
DX: S61.412A Laceration without foreign body of left hand, initial encounter (principal); W26.0XXA Contact with knife, initial encounter; Y92.098 Other place in other non-institutional residence as the place of occurrence of the external cause; Y93.H3 Activity, building and construction; Z88.5 Allergy status to narcotic agent

== ENCOUNTER 2020-03-02 01:23 | Emergency (ER) | payer OTHER ==
[~2020-03-02] VITALS: Ht 188 cm; Wt 131.3 kg
[2020-03-02] MEDS ORDERED: NS 1,000 ML IV ONE ×2 (01:45→13:00)
[2020-03-02 01:51] LABS: BASO % 0.5 % (0.0-1.0); EOS # 0.1 10^3/uL (0.0-0.5); EOS % 0.8 % (0.0-3.0); HEMATOCRIT 43.4 % (42.0-52.0); HEMOGLOBIN 14.2 g/dl (13.5-17.5); LYMPH # 1.3 10^3/uL (1.5-5.0); LYMPH % 16.6 % (24.0-44.0); MEAN CORPUSCULAR HGB CONC 32.7 g/dl (32.0-36.5); MEAN CORPUSCULAR VOLUME 88.6 fl (80.0-96.0); MONO # 0.6 10^3/uL (0.0-0.8); MONO % 7.5 % (0.0-5.0); NEUTROPHILS # 5.8 10^3/uL (1.5-8.5); NEUTROPHILS % 74.3 % (36.0-66.0); PLATELET COUNT, AUTOMATED 187 10^3/uL (150-450); WHITE BLOOD COUNT 7.8 10^3/uL (4.0-10.0)
[2020-03-02 02:29] LABS: AMPHETAMINES LEVEL URINE NEGATIVE (NEGATIVE); BARBITURATES URINE NEGATIVE (NEGATIVE); BENZODIAZEPINES URINE NEGATIVE (NEGATIVE); CANNABINOIDS URINE POSITIVE (NEGATIVE); COCAINE METABOLITE URINE NEGATIVE (NEGATIVE); METHADONE URINE NEGATIVE (NEGATIVE); OPIATES URINE NEGATIVE (NEGATIVE); PHENCYCLIDINE URINE NEGATIVE (NEGATIVE)
[2020-03-02 02:29] LABS: ACETAMINOPHEN LEVEL < 2.0 UG/ML (10.0-30.0); ALBUMIN 3.6 GM/DL (3.2-5.2); ALT/SGPT 18 U/L (12-78); BILIRUBIN,DIRECT < 0.1 MG/DL (0.0-0.2); BILIRUBIN,TOTAL 0.3 MG/DL (0.2-1.0); BLOOD UREA NITROGEN 13 MG/DL (7-18); CALCIUM LEVEL 8.9 MG/DL (8.5-10.1); CARBON DIOXIDE LEVEL 26 MEQ/L (21-32); CHLORIDE LEVEL 108 MEQ/L (98-107); CPK CREATINE PHOSPHOKINASE 254 U/L (39-308); CREATININE FOR GFR 0.93 MG/DL (0.70-1.30); ETHYL ALCOHOL (ETHANOL) < 0.003 % (0.000-0.010); GLOMERULAR FILTRATION RATE > 60.0 (>60); GLUCOSE, FASTING 130 MG/DL (70-100); POTASSIUM SERUM 4.5 MEQ/L (3.5-5.1); SALICYLATE LEVEL < 1.7 MG/DL (5.0-30.0); SODIUM LEVEL 140 MEQ/L (136-145); THYROID STIMULATING HORMONE 0.921 uIU/ML (0.358-3.740); TOTAL PROTEIN 6.9 GM/DL (6.4-8.2)
[2020-03-02 22:07] VITALS: BP 103/54
--- NOTE | 2020-03-14 14:42 | ECGEPIP ---
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
== END 2020-03-02 22:45 | disposition home or self-care (01) ==
LOC: M ED 01:23
DX: F19.10 Other psychoactive substance abuse, uncomplicated (principal); Z88.6 Allergy status to analgesic agent
CPT/HCPCS: 36415; 51702; 80048; 80076; 80307; 82550; 84443; 85025; 93005; 93041; 94760; 96360; 96361; 99285; G0480

== ENCOUNTER 2021-04-17 04:10 | Emergency (ER) | payer OTHER ==
[~2021-04-17] VITALS: Ht 182.9 cm; Wt 141.0 kg
[2021-04-17 04:11] VITALS: BP 150/100
--- OUTSIDE RECORDS SUMMARY | 2021-04-17 04:22 | CCD ---
Author Author [facility] Organization [facility] Address Unknown Phone Unavailable Support Name Relationship Address Phone SELF Next Of Kin Unknown Unavailable SELF EMPLOYED Next Of Kin [address] [place] [address] [place] [address] TIN ABIDA MELGAR Next Of Kin [address] [place] [address] UE Next Of Kin Unknown Unavailable [place] [place] [address] [employer] [place] [address] Unavailable YARELI GARRISON Next Of Kin [address] [facility] [address] [place] [address] Re-disclosure Warning The records that you are about to access may contain information from federally-assisted alcohol or drug abuse programs. If such information is present, then the following federally mandated warning applies: This information has been disclosed to you from records protected by federal confidentiality rules (42 CFR part 2). The federal rules prohibit you from making any further disclosure of this information unless further disclosure is expressly permitted by the written consent of the person to whom it pertains or as otherwise permitted by 42 CFR part 2. A general authorization for the release of medical or other information is NOT sufficient for this purpose. The Federal rules restrict any use of the information to criminally investigate or prosecute any alcohol or drug abuse patient.The records that you are about to access may contain highly sensitive health information, the redisclosure of which is protected by Article 27-F of the [facility] Public Health law. If you continue you may have access to information: Regarding HIV / AIDS; Provided by facilities licensed or operated by the [facility] Office of Mental Health; or Provided by the [facility] Office for People With Developmental Disabilities. If such information is present, then the following [facility] mandated warning applies: This information has been disclosed to you from confidential records which are protected by state law. State law prohibits you from making any further disclosure of this information without the specific written consent of the person to whom it pertains, or as otherwise permitted by law. Any unauthorized further disclosure in violation of state law may result in a fine or senior living sentence or both. A general authorization for the release of medical or other information is NOT sufficient authorization for further disc losure. Medications No Information Insurance Providers Payer name Policy type / Coverage type Policy ID Covered constitution party ID Covered constitution party's relationship to judd Policy Judd Plan Information [facility] [id number] SP [id number] SELF PAY ONLY [id number] SP [id number] [facility] O [id number] S [id number] [facility] [id number] SP [id number] SELF PAY UNAVAILABLE SP UNAVAILA BLE BLUE CROSS MATIAS PLAN [id number] SP [id number] [employer] BCBS P [id number] S [id number] O BLUE [id number] SP [id number] Problems, Conditions, and Diagnoses No Information Surgeries/Procedures No Information Results No Information Social History No Information
[2021-04-17 05:21] LABS: HEMATOCRIT 45.6 % (42.0-52.0); HEMOGLOBIN 15.5 g/dl (13.5-17.5); MEAN CORPUSCULAR HEMOGLOBIN 30.7 pg (27.0-33.0); MEAN CORPUSCULAR VOLUME 90.3 fl (80.0-96.0); PLATELET COUNT, AUTOMATED 175 10^3/uL (150-450); RED BLOOD COUNT 5.05 10^6/uL (4.30-6.10)
[2021-04-17 05:51] LABS: ACETAMINOPHEN LEVEL < 2.0 UG/ML (10.0-30.0); ALBUMIN 3.2 GM/DL (3.2-5.2); ALT/SGPT 105 U/L (12-78); BILIRUBIN,DIRECT 0.2 MG/DL (0.0-0.2); BILIRUBIN,TOTAL 0.7 MG/DL (0.2-1.0); BLOOD UREA NITROGEN 11 MG/DL (7-18); CALCIUM LEVEL 8.6 MG/DL (8.5-10.1); CARBON DIOXIDE LEVEL 27 MEQ/L (21-32); CHLORIDE LEVEL 108 MEQ/L (98-107); ETHYL ALCOHOL (ETHANOL) < 0.003 % (0.000-0.010); GLOMERULAR FILTRATION RATE > 60.0 (>60); GLUCOSE, FASTING 94 MG/DL (70-100); POTASSIUM SERUM 3.7 MEQ/L (3.5-5.1); SALICYLATE LEVEL < 1.7 MG/DL (5.0-30.0); SODIUM LEVEL 141 MEQ/L (136-145)
--- OUTSIDE RECORDS SUMMARY | 2021-04-17 06:25 | CCD ---
Author Author [facility] Organization [facility] Address Unknown Phone Unavailable Support Name Relationship Address Phone SELF Next Of Kin Unknown Unavailable SELF EMPLOYED Next Of Kin [address] [place] [address] [place] [address] TIN ABIDA MELGAR Next Of Kin [address] [place] [address] UE Next Of Kin Unknown Unavailable [employer] [place] [address] [employer] [place] [address] Unavailable YARELI GARRISON Next Of Kin [address] [facility] [address] [place] [address] Re-disclosure Warning The records that you are [...] is protected by Article 27-F of the [facility] Public Health law. If you continue you may have access to information: Regarding HIV / AIDS; Provided by facilities licensed or operated by the [facility] Office of Mental Health; or Provided by the [facility] Office for People With Developmental Disabilities. If such information is present, then the following [facility] mandated warning applies: This information has [...] law may result in a fine or detention sentence or both. A general authorization for the release of medical or other information is NOT sufficient authorization for further disc losure. Medications No Information Insurance Providers Payer name Policy type / Coverage type Policy ID Covered democrat ID Covered democrat's relationship to judd Policy Judd Plan Information [facility] [id number] SP [id number] SELF PAY ONLY [id number] SP [id number] [facility] O [id number] S [id number] [facility] [id number] SP [id number] SELF PAY UNAVAILABLE SP UNAVAILA BLE BLUE CROSS MATIAS PLAN [id number] SP [id number] [employer] BCBS P [id number] S [id number] O BLUE [id number] Problems, Conditions, and Diagnoses No Information Surgeries/Procedures No Information Results No Information Social History No Information
== END 2021-04-17 13:12 | disposition home or self-care (01) ==
LOC: M ED 04:10
DX: F19.120 Other psychoactive substance abuse with intoxication, uncomplicated (principal); Z88.5 Allergy status to narcotic agent

== ENCOUNTER 2021-07-23 14:01 | Inpatient (IN) | payer MEDICAID, OTHER ==
[~2021-07-23] VITALS: Ht 182.9 cm; Wt 137.6 kg
[2021-07-23] MEDS ORDERED: ACETAMINOPHEN TAB 650MG DOSE (2X325MG) PO PRN (14:20)
[2021-07-23] MEDS ORDERED: traZODone 50 MG TAB PO PRN (14:20)
[2021-07-23] MEDS ORDERED: MOM 30ML SUSPENSION UDC PO PRN (14:20)
[2021-07-23] MEDS ORDERED: MAALOX 30 ML SUSP *UDC PO PRN (14:20)
[2021-07-23 16:13] VITALS: BP 141/91
[2021-07-24 06:48] VITALS: BP 146/93
[2021-07-24] MEDS: SERTRALINE HCL 50 MG TAB PO SCH (09:28)
[2021-07-24 16:19] VITALS: BP 137/65
[2021-07-24 20:26] LABS: ALBUMIN 3.2 GM/DL (3.2-5.2); BILIRUBIN,DIRECT 0.2 MG/DL (0.0-0.2); BILIRUBIN,TOTAL 0.3 MG/DL (0.2-1.0); CHOLESTEROL RISK RATIO 4.138 (<5)
[2021-07-25 06:35] VITALS: BP 141/71
[2021-07-25] MEDS: SERTRALINE HCL 50 MG TAB PO SCH (08:41)
[2021-07-25 16:14] VITALS: BP 160/74
[2021-07-25 16:15] VITALS: BP 141/90
[2021-07-26 06:33] VITALS: BP 120/56
[2021-07-26] MEDS: SERTRALINE HCL 50 MG TAB PO SCH (09:33)
[2021-07-26 22:04] VITALS: BP 131/69
[2021-07-27 06:31] VITALS: BP 140/73
[2021-07-27] MEDS ORDERED: SERT50TA29 PO (08:28)
[2021-07-27] MEDS: SERTRALINE HCL 50 MG TAB PO SCH (09:39)
== END 2021-07-27 13:38 | disposition home or self-care (01) | DRG 753 ==
LOC: M PSY 16:11
PROVIDERS: ADMIT Psychiatry & Neurology Psychiatry; ATTEND Psychiatry & Neurology Psychiatry
DX: F39 Unspecified mood [affective] disorder (principal); Z90.49 Acquired absence of other specified parts of digestive tract; F17.210 Nicotine dependence, cigarettes, uncomplicated; F12.10 Cannabis abuse, uncomplicated; F14.10 Cocaine abuse, uncomplicated; F15.10 Other stimulant abuse, uncomplicated; Z91.51 Personal history of suicidal behavior; Z62.810 Personal history of physical and sexual abuse in childhood; Z88.5 Allergy status to narcotic agent; Z88.8 Allergy status to other drugs, medicaments and biological substances

== ENCOUNTER 2022-11-28 20:14 | Emergency (ER) | payer OTHER ==
[~2022-11-28] VITALS: Ht 182.9 cm; Wt 160.8 kg
[~2022-11-28 20:14] MED LIST changes: -DOXY-350 PO; +DOXY-444 PO; +SERT50TA29 PO
[2022-11-28] MEDS ORDERED: ACETAMINOPHEN 325 MG TAB PO ONE (23:30)
[2022-11-29 00:24] LABS: BASO % 0.3 % (0.0-1.0); EOS # 0.1 10^3/uL (0.0-0.5); HEMATOCRIT 43.9 % (42.0-52.0); HEMOGLOBIN 14.8 g/dl (13.5-17.5); LYMPH # 2.4 10^3/uL (1.5-5.0); LYMPH % 19.8 % (24.0-44.0); MEAN CORPUSCULAR HEMOGLOBIN 30.2 pg (27.0-33.0); MEAN CORPUSCULAR HGB CONC 33.7 g/dl (32.0-36.5); MEAN CORPUSCULAR VOLUME 89.6 fl (80.0-96.0); MONO # 1.2 10^3/uL (0.0-0.8); MONO % 10.2 % (2.0-8.0); NEUTROPHILS # 8.1 10^3/uL (1.5-8.5); NEUTROPHILS % 68.2 % (36.0-66.0); PLATELET COUNT, AUTOMATED 166 10^3/uL (150-450); WHITE BLOOD COUNT 11.9 10^3/uL (4.0-10.0)
[2022-11-29] MEDS ORDERED: ISOVUE-370 76% 100ML VIAL As Ordered ONE (00:35)
[2022-11-29 02:22] LABS: CK-MB VALUE MASS < 1.0 NG/ML (<3.6)
[2022-11-29 02:30] LABS: CPK CREATINE PHOSPHOKINASE 82 U/L (46-171); MB/CK RELATIVE INDEX 1.21 (< OR =4)
[2022-11-29 03:00] VITALS: BP 118/57
[2022-11-29 03:06] LABS: CK-MB VALUE MASS < 1.0 NG/ML (<3.6)
[2022-11-29 03:22] LABS: CPK CREATINE PHOSPHOKINASE 79 U/L (46-171); MB/CK RELATIVE INDEX 1.26 (< OR =4)
[2022-11-29] MEDS ORDERED: ELIQ5TAB PO (03:29)
[2022-11-29] MEDS ORDERED: APIXABAN 5 MG TAB (ELIQUIS) PO ONE (03:30)
[2022-11-30 10:57] LABS: DRVV SCREEN 41.6 SEC
[2022-11-30 11:17] LABS: PTT LUPUS TYPE ANTICOAG SCREEN 1.1 (0-1.2)
[2022-12-05 14:07] LABS: ANTI THROMBIN 3 ANTIGEN IMMUNO 81 % (72-124); ANTI THROMBIN 3 FUNCT ACTIVITY 85 % (75-135); CARDIOLIPIN IGA ANTIBODY <9 APL U/mL (0-11); CARDIOLIPIN IGG ANTIBODY <9 GPL U/mL (0-14); CARDIOLIPIN IGM ANTIBODY 11 MPL U/mL (0-12); PHOSPHOLIPIDS LEVEL 156 mg/dL (127-261); PROTEIN C FUNCTIONAL ACTIVITY 65 % (73-180); PROTEIN S FUNCTIONAL ACTIVITY 70 % (63-140)
== END 2022-11-29 03:51 | disposition home or self-care (01) ==
LOC: M ED 20:14
DX: I82.401 Acute embolism and thrombosis of unspecified deep veins of right lower extremity (principal); I26.99 Other pulmonary embolism without acute cor pulmonale; E66.9 Obesity, unspecified; F19.10 Other psychoactive substance abuse, uncomplicated; F12.90 Cannabis use, unspecified, uncomplicated; Z88.5 Allergy status to narcotic agent; F17.200 Nicotine dependence, unspecified, uncomplicated; Z79.01 Long term (current) use of anticoagulants; Z79.899 Other long term (current) drug therapy
CPT/HCPCS: 36415; 71275; 80047; 81240; 82550; 82553; 84311; 85025; 85300; 85301; 85303; 85305; 85730; 86147; 87486; 87581; 87633; 87798; 93005; 93971; 99284; Q9967

== ENCOUNTER → 2023-07-19 | Outpatient (CLI) | payer MEDICAID ==
[~2023-07-19] MED LIST changes: +ELIQ5TAB PO
== END ==
LOC: M OUTALCOH 09:41
PROVIDERS: ATTEND Psychiatry & Neurology Psychiatry
DX: Z13.39 Encounter for screening examination for other mental health and behavioral disorders (principal)

== ENCOUNTER 2023-08-21 15:05 | Outpatient (RCR) | payer MEDICAID | END 2023-08-31 | LOC: M OUTALCOH 15:05 | PROVIDERS: ATTEND Psychiatry & Neurology Psychiatry | DX: Z03.89 Encounter for observation for other suspected diseases and conditions ruled out (principal) ==

== ENCOUNTER 2024-08-09 16:22 | Emergency (ER) | payer MEDICAID, OTHER, SELFPAY ==
[~2024-08-09] VITALS: Ht 182.9 cm; Wt 110.0 kg
[~2024-08-09 16:22] MED LIST changes: +DOXY-440 PO; -DOXY-444 PO
[2024-08-09] MEDS: BOOSTRIX VACCINE (TETANUS/DIPHTH/ACEL. PERTUSSIS) 0.5ML SYR IM.IMMUN ONE (17:35)
[2024-08-09 17:38] LABS: HEMATOCRIT 51.6 % (42.0-52.0); HEMOGLOBIN 18.1 g/dl (13.5-17.5); MEAN CORPUSCULAR HEMOGLOBIN 30.3 pg (27.0-33.0); MEAN CORPUSCULAR HGB CONC 35.1 g/dl (32.0-36.5); MEAN CORPUSCULAR VOLUME 86.4 fl (80.0-96.0); PLATELET COUNT, AUTOMATED 163 10^3/uL (150-450); RED BLOOD COUNT 5.97 10^6/uL (4.30-6.10); WHITE BLOOD COUNT 8.1 10^3/uL (4.0-10.0)
[2024-08-09 18:06] LABS: ETHYL ALCOHOL (ETHANOL) < 0.003 % (0.000-0.010)
[2024-08-09 18:07] LABS: ALBUMIN 3.5 G/DL (3.2-5.2); ALKALINE PHOSPHATASE 90 U/L (40-129); ALT/SGPT 109 U/L (7.0-40); AST/SGOT 106 U/L (<34); BILIRUBIN,DIRECT 0.3 MG/DL (<0.4); BILIRUBIN,TOTAL 0.9 MG/DL (0.3-1.2); BLOOD UREA NITROGEN 11 MG/DL (9-23); CALCIUM LEVEL 8.8 MG/DL (8.5-10.1); CARBON DIOXIDE LEVEL 23 MMOL/L (20-31); CHLORIDE LEVEL 106 MMOL/L (98-107); CREATININE FOR GFR 0.68 MG/DL (0.70-1.30); GLOMERULAR FILTRATION RATE > 60.0 (>60); GLUCOSE, FASTING 149 MG/DL (60-100); POTASSIUM SERUM 4.4 MMOL/L (3.5-5.1); SALICYLATE LEVEL < 3.0 MG/DL (<30); SODIUM LEVEL 139 MMOL/L (136-145); TOTAL PROTEIN 8.1 G/DL (5.7-8.2)
[2024-08-09 18:11] LABS: THYROID STIMULATING HORMONE 4.078 uIU/ML (0.55-4.78)
[2024-08-09 18:16] LABS: BARBITURATES URINE NEGATIVE (NEGATIVE); BENZODIAZEPINES URINE NEGATIVE (NEGATIVE); CANNABINOIDS URINE NEGATIVE (NEGATIVE); COCAINE METABOLITE URINE NEGATIVE (NEGATIVE); METHADONE URINE NEGATIVE (NEGATIVE); OPIATES URINE NEGATIVE (NEGATIVE); PHENCYCLIDINE URINE NEGATIVE (NEGATIVE)
[2024-08-09 18:22] LABS: AMPHETAMINES LEVEL URINE POSITIVE (NEGATIVE)
[2024-08-09 18:48] VITALS: BP 128/76; TEMP 97.6; O2SAT 99
== END 2024-08-09 19:37 | disposition home or self-care (01) ==
LOC: M ED 16:22
DX: Z04.6 Encounter for general psychiatric examination, requested by authority (principal); S60.221A Contusion of right hand, initial encounter; W22.09XA Striking against other stationary object, initial encounter; Y92.9 Unspecified place or not applicable; Y93.89 Activity, other specified; Y99.9 Unspecified external cause status; Z86.711 Personal history of pulmonary embolism; Z86.718 Personal history of other venous thrombosis and embolism; J90 Pleural effusion, not elsewhere classified; F39 Unspecified mood [affective] disorder; Z87.891 Personal history of nicotine dependence; Z79.01 Long term (current) use of anticoagulants; Z88.5 Allergy status to narcotic agent